=== PATIENT | female | born 1990 | race African-American/Black ===

== ENCOUNTER → 2017-07-04 | Day surgery (SDC) | payer BC, OTHER ==
[2017-07-04 12:46] VITALS: BMI 23.8
[2017-07-04 12:48] LABS: Bilirubin Negative (Negative); Blood, Urine Trace (Negative); Glucose, Urine (Dipstick) 100 mg/dL (Negative); Ketone, Urine Negative (Negative); Nitrite Negative (Negative); Protein, Urine (Dipstick) Negative (Neg-Trace); Urobilinogen 0.2 mg/dL (0.2-1.0)
[2017-07-04 12:50] LABS: Bacteria/HPF 3+ HPF (None Seen); Hyaline Casts/LPF 0-3 HYALINE CAST LPF (0-3 Hyaline); RBC/HPF 0-3 HPF (0-3); Squamous Epithelial 0-3 HPF (0-3)
--- NOTE | 2017-07-05 02:15 | PRG ---
DATE OF SERVICE: 07/05/2017 PRIMARY FINANCIAL SERVICES AUDITOR: Clinic. CHIEF COMPLAINT: Vaginal spotting. HISTORY OF PRESENT ILLNESS: The patient is a 27-year-old G1, P0 female with an intrauterine pregnan cy at 30 weeks and 3 days who woke up this morning noticing pink discharge on the toilet when she we nt to the bathroom. The patient has not had anything since then, but was worried because she is fee ling some cramping and that also has resolved. The patient denies any recent intercourse, any recen t infections, illness, fever. She denies any change in her discharge, any urinary urgency or freque ncy. The patient denies any complications with this thus far. She does admit to being by nature very worried with the health of this . PAST MEDICAL HISTORY: Negative. PAST SURGICAL HISTORY: Negative. OBSTETRIC HISTORY: This is her first . ALLERGIES: No known drug allergies. MEDICATIONS: vitamins. OBSTETRIC LABORATORY DATA: Unavailable. SOCIAL HISTORY: Denies drug, alcohol or tobacco use. REVIEW OF SYSTEMS: Patient denies any recent illness, fever, fall, headache, chest pain, shortness of breath, any nausea, vomiting, diarrhea, constipation, any new rashes, lumps or bumps, any hip pro blems or knee problems, any leakage of fluid. She has had some isolated spotting as described and d enies any urinary urgency or frequency. PHYSICAL EXAMINATION: VITAL SIGNS: Blood pressure 109/75, heart rate 96, respiratory rate 20, satting 100% on room air, t emperature 98.8. GENERAL: She appears to be in no acute distress. She is alert and oriented, and cooperative and pl easant to interact with. HEENT: Head is normocephalic, atraumatic. LUNGS: Clear to auscultation bilaterally. HEART: Regular rate and rhythm. ABDOMEN: Gravid and soft and nontender. EXTREMITIES: Nontender, nonedematous. A CABIN CLEANING SUPERVISOR-3 and urinalysis were collected. CERVIX: Cervical exam per nursing staff is closed, thick and high. heart tracing performed for threatened labor. Baseline is noted to be in the 140s with modera te long-term variability, positive accelerations, no decelerations. On the tocometer, no contractio ns are visible, but perhaps some minimal irritability. CABIN CLEANING SUPERVISOR-3 was collected and is significant for ba cterial vaginosis and UA was also collected and noted to be a clean-catch with no squamous cells, bu t positive for bacteria, leukocyte esterase and nitrites. ASSESSMENT AND PLAN: The patient is a 27-year-old female followed in the Clinic with an in trauterine at 30 weeks and 3 days who has a urinary tract infection and bacterial vaginosi s. Patient has been prescribed MetroGel to place vaginally at night for the next 7 days and a Macro bid to be taken twice a day for the next week. The patient has been given labor precautions and is scheduled to follow up with the Clinic in the near future.
== END ==
LOC: L&D/OP 11:14
PROVIDERS: ATTEND Obstetrics & Gynecology
DX: O26.853 Spotting complicating pregnancy, third trimester (principal); O23.43 Unspecified infection of urinary tract in pregnancy, third trimester; O23.593 Infection of other part of genital tract in pregnancy, third trimester; N76.0 Acute vaginitis; B96.89 Other specified bacterial agents as the cause of diseases classified elsewhere; Z3A.30 30 weeks gestation of pregnancy; Z79.2 Long term (current) use of antibiotics; Z79.899 Other long term (current) drug therapy; Z87.891 Personal history of nicotine dependence
CPT/HCPCS: 81003; 81015; 87480; 87510; 87660

== ENCOUNTER 2017-08-15 18:04 | Inpatient (IN) | payer OTHER ==
[2017-08-15 18:56] VITALS: BMI 26.3
[2017-08-15] MEDS ORDERED: Labetalol HCl 100 MG/20 ML VIAL SLOW IVP PRN ×2 (19:15→19:53)
--- NOTE | 2017-08-15 19:33 | PDOC.LDHP ---
Labor and Delivery H&P Chief complaint: other (elevated blood pressure at clinic) HPI: 27 yo @ 36.1 by 1st tri US presents for elevated BP at [facility] noted to be 140s /90s on three separate occasions. Concern for preeclampsia. Pt denies headache, vision changes, ruq and epigastric pain. Denies CP, sob. Current gestational age (weeks): 36 Due date: 09/12/17 Dating criteria: first trimester ultrasound Grav: 1 Para: 0 Current complications: gestational hypertension Abnormal US findings: Yes (borderline low inez, repeat pending) Current medications: pre-aidan vitamins Previous surgical history: none Social history: drug use (marijuana, stopped with ) - Physical Exam Abnormal vital signs: elevated bp, 2 bp >160 sys, > 15 minutes apart. Latest > 180 sys General: NAD Heart: RRR Lungs: nonlabored breathing Abdomen: NTTP Extremeties: trace edema FHT: category 1, variability present [place] contractions every: 7, sporadic - Vaginal Exam cm dilated: 1 (posterior) Effacement: 25% Station: -3 - OB Labs Blood type: O RH: positive Antibody Screen: negative HIV: negative RPR: negative HEPSAg: negative 1 hour GCT: negative GBS: unknown (done today, results pending) Urine drug screen: not done Rubella: immune - Assessment L&D Assessment: medically indicated induction -gestational htn, r/o preeclampsia, severe range pressures - Plan Plan: admit to L&D, cervical ripening, GBS antibiotic prophylaxis, magnesium for seizure prophylaxis -: cbc, cmp, UA, urine protein/creatinine ratio, NST, BPP, uric acid labetolol prn q4hr for BP >160/110 x2 severe range pressures and hyperreflexia 3+/5 will admit to l&d and cytotec for induction mag for seizure prophylaxias, mag level in AM GBS unknown and <37 weeks, prophylaxis medically indicated induction @ < 37 weeks, celestone 12mg q12hr <Luis Fernando Porter - Last Filed: 08/15/17 19:53> <Stuart Franklin - Last Filed: 08/16/17 07:42> Allergies/Adverse Reactions: Allergies Allergy/AdvReac Type Severity Reaction Status Date / Time No Known Allergies Allergy Verified 07/04/17 12:37 Attending Addendum - Attending Addendum I personally evaluated the patient and discussed the management with Dr. Porter I agree with the History, Examination, Assessment and Plan documented above with any addition or exceptions noted below. <Stuart Franklin - Last Filed: 08/16/17 07:42>
[2017-08-15 19:43] LABS: Bilirubin Negative (Negative); Blood, Urine Negative (Negative); Glucose, Urine (Dipstick) Negative (Negative); Ketone, Urine Negative (Negative); Nitrite Negative (Negative); Protein, Urine (Dipstick) Negative (Neg-Trace)
[2017-08-15 19:51] LABS: #Basophils 0.1 thou/uL (0.0-0.2); #Neutrophils 6.1 thou/uL (1.40-6.50); %Basophils 0.7 % (0.0-1.0); %Eosinophils 0.4 % (0.0-10.0); %Lymphocytes 21.5 % (21.0-51.0); %Monocytes 10.4 % (0.0-10.0); Hematocrit 38.1 % (36.0-47.0); Mean Platelet Volume 10.5 fL (7.4-10.4); White Blood Cell (WBC) Count 9.1 thou/uL (4.8-10.8)
[2017-08-15] MEDS ORDERED: Promethazine HCl 25 MG/ML VIAL IM PRN (19:53)
[2017-08-15] MEDS ORDERED: Docusate 100 MG CAP PO PRN (19:53)
[2017-08-15] MEDS ORDERED: Calcium Gluc 4.6 MEQ/10 ML (100 MG/ML) SLOW IVP PRN (19:53)
[2017-08-15] MEDS ORDERED: Ondansetron HCl/PF 4 MG/2 ML Vial IVP PRN (19:53)
[2017-08-15] MEDS ORDERED: Acetaminophen 500 MG TAB PO PRN (19:53)
[2017-08-15 20:00] LABS: Bacteria/HPF 1+ HPF (None Seen); Hyaline Casts/LPF NONE SEEN LPF (0-3 Hyaline); RBC/HPF 0-3 HPF (0-3)
[2017-08-15] MEDS ORDERED: Magnesium Sulfate 20 GM/WATER 500 ML BAG IVPB SCH (20:00)
[2017-08-15 20:13] LABS: ALT (SGPT) 8 U/L (8-55); AST (SGOT) 14 U/L (5-34); Alkaline Phosphatase 163 U/L (40-150); Anion Gap 11 mmol/L (10-20); BUN (Urea Nitrogen) 9 mg/dL (7.0-18.7); Bilirubin, Total 0.3 mg/dL (0.2-1.2); Calc. Creatinine Clearance 135 mL/min (70-130); Calcium 9.1 mg/dL (7.8-10.44); Carbon Dioxide 23 mmol/L (22-29); Chloride 107 mmol/L (98-107); Estimated GFR-MDRD Greater than 90; Protein, Total 7.3 g/dL (6.0-8.3); Uric Acid 6.6 mg/dL (2.6-6.0)
[2017-08-15] MEDS: Lactated Ringer's 1,000 ML IV SCH (21:25)
[2017-08-15] MEDS: Betamet Acet/Betamet Na Ph 30 MG/5 ML VIAL IM SCH (21:35)
[2017-08-15] MEDS: Misoprostol 100 MCG TAB VAG SCH (22:00)
[2017-08-15] MEDS ORDERED: Zolpidem Tartrate 5 MG TAB PO PRN (22:59)
--- NOTE | 2017-08-15 23:32 | ULT ---
ULTRASOUND BIOPHYSICAL PROFILE: History: Gestational hypertension. Preclampsia. Comparison: None. FINDINGS: Biophysical profile score is 8/8. heart rate documented at 144 beats/minute. Amniotic fluid ind ex is 11.9 cm. The fetus is in vertex position and placenta is posterior. IMPRESSION: Biophysical profile score 8/8. POS: [facility]
--- NOTE | 2017-08-16 00:52 | PDOC.LDPN ---
Labor & Delivery Progress Note - Subjective Subjective: comfortable, no concerns - Objective Abnormal vital signs: elevated BP, one >160 sys General: NAD Dilation: 1.5 Effacement: 100% Station: -3 FHT: category 1, variability present [place] contractions every: absent Resuscitative measures: maternal position change - Assessment (1) Gestational hypertension affecting first Code(s): O13.9 - GESTATIONAL HTN W/O SIGNIFICANT PROTEINURIA, UNSP TRIMESTER Current Visit: Yes Status: Acute Plan: continue plan of care -: continue mag uop has been 400-450 over last few hours denies headache abd pain scotoma reflexes 2+-3/5 labetolol prn for BP >160/110 cytotec for iol continue plan of care
[2017-08-16] MEDS: Misoprostol 100 MCG TAB VAG SCH ×4 (01:10→13:14)
[2017-08-16] MEDS: Penicillin G Potassium 5 MILL.UNITS in Sodium Chloride 0.9% 100 ML IVPB SCH ×2 (04:26→23:11)
--- NOTE | 2017-08-16 06:13 | PDOC.LDPN ---
Labor & Delivery Progress Note - Subjective Subjective: comfortable - Objective Abnormal vital signs: Mostly controlled BP, with periodic elevation General: NAD, resting Uterine fundus: non tender SVE: 1/0/-2 Dilation: 1 Effacement: 0% Station: -2 FHT: category 2 (minimal variability, no acceleration, no deceleration), acceleration absent, absent or minimal variables [place] contractions every: 3-5 Resuscitative measures: maternal oxygen, maternal IV fluids - Assessment (1) Gestational hypertension affecting first Code(s): O13.9 - GESTATIONAL HTN W/O SIGNIFICANT PROTEINURIA, UNSP TRIMESTER Current Visit: Yes Status: Acute Comment: Pt currently on Mg. BP is largely controlled Denies headache, changes in vision, RUQ pain, peripheral numbness/tingling Patellar DTR 2/4 bl Mg check @ 0945 Cat 2 strip possibly due to ambien, continue to monitor. Pt has made little cervical change in 8 hours of cytotec, continue to monitor vitals and cervical change Plan: continue plan of care
[2017-08-16] MEDS: Magnesium Sulfate 20 gm/500 ml 20 GM/500 ML BAG IVPB SCH ×2 (06:30→16:21)
[2017-08-16] MEDS: Pen G 2.5 MILL.UNITS/50 ML BAG IVPB SCH ×2 (08:15→17:56)
[2017-08-16] MEDS: Betamet Acet/Betamet Na Ph 30 MG/5 ML VIAL IM SCH (08:55)
--- NOTE | 2017-08-16 09:17 | PDOC.LDPN ---
Labor & Delivery Progress Note - Subjective Subjective: comfortable, no concerns - Objective Abnormal vital signs: Elevated bp to 140s/90s Uterine fundus: non tender SVE: 1/0/-3 FHT: category 1, variability present, absent or minimal variables [place] contractions every: 1-2 - Assessment (1) Gestational hypertension affecting first Code(s): O13.9 - GESTATIONAL HTN W/O SIGNIFICANT PROTEINURIA, UNSP TRIMESTER Current Visit: Yes Status: Acute Comment: Pt currently on Mg. BP is largely controlled Denies headache, changes in vision, RUQ pain, peripheral numbness/tingling Patellar DTR 2/4 bl Mg check @ 0945 Strip has improved to catagory 1. Very little cervical change. Cannot increase cytotec dose dt frequency of contractions. Cannot currently place balloon dt positioning and dilation of cervical os
[2017-08-16] MEDS: Lactated Ringer's 1,000 ML IV SCH ×3 (09:19→22:45)
--- NOTE | 2017-08-16 10:53 | PDOC.LDPN ---
Labor & Delivery Progress Note - Subjective Subjective: comfortable - Objective Abnormal vital signs: Periodic elevated BP. Most pressures are within normal range General: NAD, resting Uterine fundus: non tender SVE: 11/10/-3 FHT: category 1, variability present, absent or minimal variables - Assessment (1) Gestational hypertension affecting first Code(s): O13.9 - GESTATIONAL HTN W/O SIGNIFICANT PROTEINURIA, UNSP TRIMESTER Current Visit: Yes Status: Acute Comment: Pt currently on Mg. BP is largely controlled Denies headache, changes in vision, RUQ pain, peripheral numbness/tingling Patellar DTR 2/4 bl Mg check @ 1400 Continued cat 1 strip Very little cervical change. Cannot increase cytotec dose dt frequency of contractions. Ballon placed at 1100
[2017-08-16] MEDS: Dextrose 5%-Lactated Ringers 1,000 ML IV SCH ×2 (13:14→17:56)
--- NOTE | 2017-08-16 15:11 | PDOC.LDPN ---
Labor & Delivery Progress Note - Subjective Subjective: comfortable - Objective Abnormal vital signs: average BP 130/90, about 50% are elevated but not severe range General: NAD Uterine fundus: non tender FHT: variability present (intermittently minimal but consistent normal and small accelerations) [place] contractions every: 4 minutes Procedures: Cooks balloon in place - Assessment (1) Gestational hypertension affecting first Code(s): O13.9 - GESTATIONAL HTN W/O SIGNIFICANT PROTEINURIA, UNSP TRIMESTER Current Visit: Yes Status: Acute Comment: Pt currently on Mg. BP is consistently eleveated but only severe range pressure was during placement of balloon, which patient was very uncomfortable with. Denies headache, changes in vision, RUQ pain, peripheral numbness/tingling Patellar DTR 2/4 bl Ballon is still in place. Will leave until falls out or 12 hours have passed. (2) Encounter for induction of labor Code(s): Z34.90 - ENCNTR FOR SUPRVSN OF NORMAL , UNSP, UNSP TRIMESTER Current Visit: Yes Status: Acute (3) delivery (maternal condition) Current Visit: Yes Status: Acute Comment: Induction for condidtion above
[2017-08-16 19:33] LABS: Amphetamine Not Detected (NotDetected); Methadone Not Detected (NotDetected); Methamphetamine Not Detected (NotDetected)
--- NOTE | 2017-08-16 20:13 | PDOC.LDPN ---
Labor & Delivery Progress Note - Subjective Subjective: comfortable, no concerns - Objective Abnormal vital signs: elevated BP ranging 130s, highest 150 General: NAD, resting Uterine fundus: non tender Dilation: Cook's balloon in place FHT: category 1, variability present [place] contractions every: 5 min Resuscitative measures: maternal position change - Assessment (1) Gestational hypertension affecting first Code(s): O13.9 - GESTATIONAL HTN W/O SIGNIFICANT PROTEINURIA, UNSP TRIMESTER Current Visit: Yes Status: Acute Comment: Pt currently on Mg. BP is consistently elevatged, highesy was 150s systolic Denies headache, changes in vision, RUQ pain, peripheral numbness/tingling Patellar DTR 2/4 bl, denies scotoma Ballon is still in place. Will leave until falls out or 12 hours have passed. Pitocin after balloon. Recheck in 3 hours and remove balloon at that time. Plan: continue plan of care
[2017-08-16] MEDS ORDERED: Penicillin G Potassium 5 MILL.UNITS VIAL ONE (22:43)
[2017-08-16] MEDS ORDERED: LR 500 ML/Oxytocin 10 units 500 ML IV SCH (23:00)
[2017-08-17] MEDS: Dextrose 5%-Lactated Ringers 1,000 ML IV SCH ×3 (02:54→15:03)
[2017-08-17] MEDS: Misoprostol 100 MCG TAB VAG SCH ×5 (02:54→15:02)
[2017-08-17] MEDS: Pen G 2.5 MILL.UNITS/50 ML BAG IVPB SCH ×3 (02:55→07:03)
[2017-08-17] MEDS: Magnesium Sulfate 20 gm/500 ml 20 GM/500 ML BAG IVPB SCH (02:55)
--- NOTE | 2017-08-17 07:02 | PDOC.LDPN ---
Labor & Delivery Progress Note - Subjective Subjective: comfortable, no concerns - Objective Abnormal vital signs: SBP typically in 130s with few into 150-160s General: NAD Uterine fundus: non tender SVE: 1.5/50/-3 FHT: category 1, variability present, absent or minimal variables [place] contractions every: 4-5 Resuscitative measures: maternal IV fluids - Assessment (1) Gestational hypertension affecting first Code(s): O13.9 - GESTATIONAL HTN W/O SIGNIFICANT PROTEINURIA, UNSP TRIMESTER Current Visit: Yes Status: Acute Comment: Pt currently on Mg. SBP is generally in the 130s with periodic rises into 160s systolic. DBP is generally 90s-100s Denies headache, changes in vision, RUQ pain, peripheral numbness/tingling Patellar DTR 2/4 bl, denies scotoma Pt is unchanged from last SVE. Pit has been moved up to 6. Will recheck in 4 hours.
--- NOTE | 2017-08-17 08:49 | PDOC.LDPN ---
Labor & Delivery Progress Note - Objective Vital signs reviewed and normal: yes (BP 150/90 on Mg) General: NAD Uterine fundus: non tender SVE: by nurse Dilation: 2 FHT: category 2 (decreased variabilty possible Mg effect, accels noted earlier this morning) - Assessment (1) Severe preeclampsia Code(s): O14.10 - SEVERE PRE-ECLAMPSIA, UNSPECIFIED TRIMESTER Current Visit: Yes Status: Acute Plan: continue plan of care, pitocin for augmentation, other (Patient has received cytotec, cervical ballon, now low dose pit. Pit will be 12 hours at 11 am today. Cervix still 2cm, will recheck at 11 and if no significant progress, turn off induction and let patient rest for 12-24hrs. Urine output is ok. BP currently non-severe, will recheck labs this morning. OK for oral intake. Plan was discussed with patient, family and nurses. Dr. Churchill (resident reception manager) also briefed and agrees with our plan.)
[2017-08-17 09:13] LABS: #Lymphocytes 1.2 thou/uL (1.20-3.40); #Monocytes 1.1 thou/uL (0.11-0.59); #Neutrophils 12.8 thou/uL (1.40-6.50); %Basophils 0.1 % (0.0-1.0); %Eosinophils 0.1 % (0.0-10.0); %Lymphocytes 7.9 % (21.0-51.0); %Monocytes 7.5 % (0.0-10.0); Hematocrit 38.7 % (36.0-47.0); Mean Platelet Volume 9.9 fL (7.4-10.4); Red Blood Cell (RBC) Count 4.61 mill/uL (4.20-5.40); White Blood Cell (WBC) Count 15.1 thou/uL (4.8-10.8)
[2017-08-17 09:41] LABS: ALT (SGPT) 7 U/L (8-55); AST (SGOT) 10 U/L (5-34); Alkaline Phosphatase 155 U/L (40-150); Anion Gap 13 mmol/L (10-20); BUN (Urea Nitrogen) 6 mg/dL (7.0-18.7); Bilirubin, Total 0.2 mg/dL (0.2-1.2); Calc. Creatinine Clearance 130 mL/min (70-130); Carbon Dioxide 22 mmol/L (22-29); Chloride 105 mmol/L (98-107); Estimated GFR-MDRD Greater than 90; Globulin 3.5 g/dL (2.4-3.5); Protein, Total 6.5 g/dL (6.0-8.3)
--- NOTE | 2017-08-17 11:20 | PDOC.EVN ---
Event Note - Event Note Event Note: 1119: L&D check Cervix same. FHTs still cat 2 but suspect mag effect and celestone. We will stop pit trial now and reassess off mag. BP last was 160 but will recheck. Labs ok. S/P trial of multiple agent induction for 24 hours. Stop Mag, stop pit and reeval for another labor attempt in 12-[address] Fleming with me now, case reviewed. Keep in L&D. OK with intermittent NST Q 4 hours.
[2017-08-17] MEDS ORDERED: NIFEdipine 10 MG CAP PO PRN (11:30)
--- NOTE | 2017-08-17 14:23 | PDOC.LDPN ---
Labor & Delivery Progress Note -: Patient sleeping comfortably. BP and other vitals all WNL over the last couple of hours. When desired, may get up to shower with fall precautions and nursing assistance. Will continue to monitor BP until this evening and discuss further plan for delivery with Dr. Bolden at that time. Continue current management.
[2017-08-17] MEDS: Lactated Ringer's 1,000 ML IV SCH ×2 (15:05→15:06)
--- NOTE | 2017-08-17 19:42 | PDOC.LDPN ---
Labor & Delivery Progress Note - Subjective Subjective: comfortable - Objective Vital signs reviewed and normal: yes General: NAD, resting Uterine fundus: non tender FHT: category 1 [place] contractions every: not ruth ann Other exam findings: accelerations present, moderate variability; HR 130s - Assessment (1) Encounter for induction of labor Code(s): Z34.90 - ENCNTR FOR SUPRVSN OF NORMAL , UNSP, UNSP TRIMESTER Current Visit: Yes Status: Acute (2) Severe preeclampsia Code(s): O14.10 - SEVERE PRE-ECLAMPSIA, UNSPECIFIED TRIMESTER Current Visit: Yes Status: Acute (3) Third trimester Code(s): Z34.93 - ENCNTR FOR SUPRVSN OF NORMAL PREG, UNSP, THIRD TRIMESTER Current Visit: Yes Status: Acute Plan: continue plan of care, other -: 27 yo @ 36.2 wks gestation, with severe preeclampsia with recent sever range pressures, failure of induction of labor overnight, with plan for repeat induction attempt in the morning at 0600 with cervadil. Induction of labor, @36.3 wks gestation 2/2 severe preeclampsia -Induction tomorrow 08/18 @ 0600 -Cervadil for 12 hours -pitocin afterwards -will monitor pt's blood pressures q4hrs -Will restart PCN and Magnesium in the morning with induction -pt is okay to walk and have a normal diet <Bernie Morales - Last Filed: 08/17/17 19:39> - Assessment (1) Severe preeclampsia Code(s): O14.10 - SEVERE PRE-ECLAMPSIA, UNSPECIFIED TRIMESTER Current Visit: Yes Status: Acute Plan: other (Faculty note: I have visited with and discussed plan of care with the patient. Resident team and I at bedside to review DX and plan of care. No new questions given. All agree with plan.) -: Faculty: Patient seen and care reviewed with her and her family at bedside. Resident team and I reviewed her DX and plan of care with her and the family. No new questions by them. Retry with cervidil in AM. <Sarath Bolden - Last Filed: 08/17/17 19:56>
[2017-08-18] MEDS ORDERED: Lidocaine 1% (PF) 30 ML VIAL SC PRN ×2 (05:46→05:59)
[2017-08-18] MEDS ORDERED: LR / Pitocin 40 units/1000 ml 1,000 ML IV PRN ×2 (05:46→05:59)
[2017-08-18] MEDS ORDERED: Calcium Gluc 4.6 MEQ/10 ML (100 MG/ML) SLOW IVP PRN ×2 (05:46→05:59)
[2017-08-18] MEDS ORDERED: Penicillin G Potassium 5 MILL.UNITS in Sodium Chloride 0.9% 100 ML IVPB SCH (06:00)
[2017-08-18] MEDS ORDERED: Dinoprostone 10 MG Suppository VAG SCH (06:00)
[2017-08-18] MEDS: Lactated Ringer's 1,000 ML IV SCH ×2 (06:04→23:35)
--- NOTE | 2017-08-18 06:21 | PDOC.LDPN ---
Labor & Delivery Progress Note - Subjective Subjective: comfortable, other (few contractions) - Objective Vital signs reviewed and normal: yes General: NAD, resting, breathing through contractions Uterine fundus: non tender Dilation: 2 Effacement: 50% Station: -3 FHT: category 1 - Assessment (1) Encounter for induction of labor Code(s): Z34.90 - ENCNTR FOR SUPRVSN OF NORMAL , UNSP, UNSP TRIMESTER Current Visit: Yes Status: Acute (2) Severe preeclampsia Code(s): O14.10 - SEVERE PRE-ECLAMPSIA, UNSPECIFIED TRIMESTER Current Visit: Yes Status: Acute (3) Third trimester Code(s): Z34.93 - ENCNTR FOR SUPRVSN OF NORMAL PREG, UNSP, THIRD TRIMESTER Current Visit: Yes Status: Acute Plan: continue plan of care -: 27 yo at 36.3w with preE with severe features here for induction of labor: Cervidil placed. Mg started. Penicillin G given. Continue to monitor FHT's and toco. Pull cervidil at 1815 or sooner depending on labor progression. <Bernie Morales - Last Filed: 08/18/17 06:20> - Assessment (1) Severe preeclampsia Code(s): O14.10 - SEVERE PRE-ECLAMPSIA, UNSPECIFIED TRIMESTER Current Visit: Yes Status: Acute Plan: other (Faculty: Plan again reviewed with the resident team. Cervidil in now. BPs reviewed. ) <Sarath Bolden - Last Filed: 08/18/17 06:27>
[2017-08-18] MEDS ORDERED: Penicillin G Potassium 5 MILL.UNITS VIAL ONE (06:23)
[2017-08-18] MEDS: Magnesium Sulfate 20 gm/500 ml 20 GM/500 ML BAG IVPB SCH ×2 (06:27→14:25)
[2017-08-18] MEDS: Dextrose 5%-Lactated Ringers 1,000 ML IV SCH ×2 (07:53→15:07)
[2017-08-18] MEDS: Pen G 2.5 MILL.UNITS/50 ML BAG IVPB SCH (08:01)
[2017-08-18] MEDS: Misoprostol 100 MCG TAB VAG SCH (08:02)
[2017-08-18] MEDS ORDERED: Prenatal Vitamin 1 TAB PO SCH (09:00)
[2017-08-18] MEDS ORDERED: [UNRECOGNIZED DRUG - OTHER] PO SCH (09:00)
[2017-08-18] MEDS ORDERED: IRON PO SCH (09:00)
[2017-08-18] MEDS ORDERED: PRENATAL VIT PO SCH (09:00)
[2017-08-18] MEDS: Labetalol HCl 100 MG/20 ML VIAL SLOW IVP PRN ×3 (09:35→18:42)
[2017-08-18] MEDS: Penicillin G 2.5 MILL.units 2.5 MILL.UNITS in Premix Bag 1 BAG IVPB SCH ×4 (11:10→23:35)
[2017-08-18] MEDS ORDERED: LR 500 ML/Oxytocin 10 units 500 ML ONE (18:33)
[2017-08-18] MEDS ORDERED: Fentanyl 4 mcg/Marc 0.1% Cadd 100 ML ONE (20:56)
[2017-08-18] MEDS ORDERED: Promethazine HCl 25 MG/ML VIAL IM PRN (21:56)
[2017-08-18] MEDS ORDERED: Naloxone HCl 0.4 mg/ml Vial IVP PRN ×2 (21:56)
[2017-08-18] MEDS ORDERED: ePHEDrine/0.9% NaCl/PF SYRINGE 50 mg/10 ml SLOW IVP PRN (21:56)
[2017-08-18] MEDS ORDERED: diphenhydrAMINE 50 MG/ML VIAL IVP PRN (21:56)
[2017-08-18] MEDS ORDERED: Eucerin (Mineral Oil/Petrolatum,White) 30 gm Jar TOP PRN (21:56)
[2017-08-18] MEDS ORDERED: Lactated Ringer's 500 ML IV PRN (21:56)
[2017-08-18] MEDS ORDERED: Ondansetron HCl/PF 4 MG/2 ML Vial IVP PRN (21:56)
[2017-08-18] MEDS ORDERED: Fentanyl 4mcg/Marcaine 0.1% Cassette 100 ML EPIDURAL SCH (22:00)
[2017-08-18] MEDS ORDERED: Communication Order-Pharmacy FS SCH (22:00)
--- NOTE | 2017-08-18 22:01 | PDOC.LDPN ---
Labor & Delivery Progress Note - Subjective Subjective: comfortable, painful contractions, vaginal pressure - Objective Vital signs reviewed and normal: yes General: NAD, resting, breathing through contractions Uterine fundus: non tender Dilation: 3 Effacement: 50% Station: -1 FHT: category 1 [place] contractions every: 10 - Assessment (1) Encounter for induction of labor Code(s): Z34.90 - ENCNTR FOR SUPRVSN OF NORMAL , UNSP, UNSP TRIMESTER Current Visit: Yes Status: Acute (2) Severe preeclampsia Code(s): O14.10 - SEVERE PRE-ECLAMPSIA, UNSPECIFIED TRIMESTER Current Visit: Yes Status: Acute (3) Third trimester Code(s): Z34.93 - ENCNTR FOR SUPRVSN OF NORMAL PREG, UNSP, THIRD TRIMESTER Current Visit: Yes Status: Acute Plan: continue plan of care, labor augmentation, pitocin for augmentation -: 27 yo @ 36.3 wks with severe preeclampsia and failed induction, now on second trial of induction s/p 12 hours with cervidil. Plan: Start pitocin AROM and IUPC at 2200. Continue to monitor. epidural to be placed.
--- NOTE | 2017-08-18 22:35 | PDOC.LDPN ---
Labor & Delivery Progress Note - Subjective Subjective: vaginal pressure, loss of fluid - Objective Vital signs reviewed and normal: yes Dilation: 4 Effacement: 50% Station: -1 FHT: category 1 [place] contractions every: 1 minute AROM: clear fluid (2041 clear spontaneous rupture of membranes) IUPC placed: yes - Assessment (1) Encounter for induction of labor Code(s): Z34.90 - ENCNTR FOR SUPRVSN OF NORMAL , UNSP, UNSP TRIMESTER Current Visit: Yes Status: Acute (2) Severe preeclampsia Code(s): O14.10 - SEVERE PRE-ECLAMPSIA, UNSPECIFIED TRIMESTER Current Visit: Yes Status: Acute (3) Third trimester Code(s): Z34.93 - ENCNTR FOR SUPRVSN OF NORMAL PREG, UNSP, THIRD TRIMESTER Current Visit: Yes Status: Acute Plan: continue plan of care, labor augmentation, pitocin for augmentation, other (IUPC placed @ 2199) -: 27 yo @ 36.3 here for second trial of induction of labor secondary to severe preeclampsia with normal range pressures, cat 1 strip, with SROM, clear fluid @ 2041, now with IUPC placed. Plan: IUPC placed Continue pitocin labor checks q4hr continue magnesium continue penicillin g
[2017-08-19] MEDS: Magnesium Sulfate 20 gm/500 ml 20 GM/500 ML BAG IVPB SCH ×3 (00:30→21:35)
[2017-08-19] MEDS: Dextrose 5%-Lactated Ringers 1,000 ML IV SCH (00:30)
[2017-08-19] MEDS: Labetalol HCl 100 MG/20 ML VIAL SLOW IVP PRN ×3 (03:52→06:16)
--- NOTE | 2017-08-19 03:55 | PDOC.LDPN ---
Labor & Delivery Progress Note - Subjective Subjective: painful contractions, vaginal pressure, other - Objective Vital signs reviewed and normal: yes (one elevated bp to 160s systolic) General: breathing through contractions Dilation: 5 Effacement: 100% Station: -1 FHT: category 1 [place] contractions every: 5-8 minutes AROM: clear fluid IUPC placed: yes - Assessment (1) Encounter for induction of labor Code(s): Z34.90 - ENCNTR FOR SUPRVSN OF NORMAL , UNSP, UNSP TRIMESTER Current Visit: Yes Status: Acute (2) Severe preeclampsia Code(s): O14.10 - SEVERE PRE-ECLAMPSIA, UNSPECIFIED TRIMESTER Current Visit: Yes Status: Acute (3) Third trimester Code(s): Z34.93 - ENCNTR FOR SUPRVSN OF NORMAL PREG, UNSP, THIRD TRIMESTER Current Visit: Yes Status: Acute Plan: continue plan of care (continue pitocin and labor checks q3-4hrs)
[2017-08-19] MEDS: Penicillin G 2.5 MILL.units 2.5 MILL.UNITS in Premix Bag 1 BAG IVPB SCH ×2 (04:00→23:06)
[2017-08-19] MEDS ORDERED: Adacel (T-DAP) 0.5 ML VIAL IM ONE (05:57)
[2017-08-19] MEDS ORDERED: Preparation H Ointment 28 GM TUBE PR PRN (05:57)
[2017-08-19] MEDS ORDERED: Lanolin Ointment 7 GM TUBE TOP PRN (05:57)
[2017-08-19] MEDS ORDERED: Milk Of Magnesia 30 ML UDCUP PO PRN (05:57)
[2017-08-19] MEDS ORDERED: Calcium Gluconate 4.6 MEQ in Sodium Chloride 0.9% 100 ML IVPB PRN (05:57)
[2017-08-19] MEDS ORDERED: Bisacodyl 10 MG SUPP PR PRN (05:57)
[2017-08-19] MEDS ORDERED: LR / Pitocin 40 units/1000 ml 1,000 ML IV SCH (06:00)
[2017-08-19 06:24] LABS: #Lymphocytes 1.7 thou/uL (1.20-3.40); #Monocytes 1.4 thou/uL (0.11-0.59); #Neutrophils 10.1 thou/uL (1.40-6.50); %Basophils 0.4 % (0.0-1.0); %Eosinophils 0.1 % (0.0-10.0); %Lymphocytes 13.1 % (21.0-51.0); %Monocytes 10.4 % (0.0-10.0); Hematocrit 41.6 % (36.0-47.0); Mean Platelet Volume 9.8 fL (7.4-10.4); Red Blood Cell (RBC) Count 4.89 mill/uL (4.20-5.40); White Blood Cell (WBC) Count 13.2 thou/uL (4.8-10.8)
--- NOTE | 2017-08-19 07:47 | PDOC.OPDEL ---
OB Operative/Delivery Note Delivery Dr/Surgeon: Dr. Andrew Lopez and Dr. Chicas Assist: Attending: Dr. Davey Pre-Delivery Diagnosis: active labor, medically indicated induction Procedure/Post Delivery Dx: other (Normal Spontaneous Vaginal Delivery) Anesthesia: epidural - Findings A Sex: female - 1 min: 8 - 5 min: 9 - Additional Findings/Plan Placenta delivered: spontaneous Repaired Obstetrical Laceration: none Estimated blood loss: 200 Post delivery plan: recovery in LICU
[2017-08-19] MEDS: Docusate (Surfak) 240 MG CAP PO SCH ×2 (10:00→23:03)
--- NOTE | 2017-08-19 13:21 | PDOC.EVN ---
Event Note - Event Note Event Note: Pt denies cp, sob, epigastric and ruq pain. Denies headache and scotoma. UOP has been 750mls/hr over last 2 hours. BP remains 150s systolic, but asymptomatic. Reflexes 2/4. No concerns. Mag checks q4hrs. OK to dc mag @ 4048 08/20/2017.
[2017-08-19] MEDS: Ibuprofen 800 MG TAB PO SCH ×3 (16:20→23:07)
[2017-08-19] MEDS: Ferrous Sulfate 325 MG TAB PO SCH ×2 (16:21→20:11)
[2017-08-19] MEDS: Acetaminophen 325 MG TAB PO PRN ×2 (16:22→23:10)
[2017-08-19] MEDS ORDERED: Bupivacaine/Epinephrine 0.25% 30 ML VIAL ONE (21:47)
[2017-08-19] MEDS ORDERED: Lidocaine 2% PF 5 ML VIAL ONE (21:47)
--- NOTE | 2017-08-20 01:51 | PDOC.PP ---
Post Progress Note Post Day #: 1 Subjective: 27 yo delivered via on 08/19 @ 0550. Pt was induced 2/2 severe preeclampsia and is currently on magnesium for 24 hours after delivery. No complaints. No changes in vision or headaches. Urinating adequately. PO intake tolerated: yes Vital Signs (12 hours) Temp Pulse Resp BP 08/19/17 21:16 99.0 F 96 18 135/90 08/19/17 20:00 99.0 F 96 18 Weight Weight 76.204 kg - Physical Examination General: NAD Cardiovascular: no m/r/g, RRR Respiratory: clear to auscultation bilaterally, non-labored breathing Abdominal: + bowel sounds, lochia (small), appropriately TTP Neurological: no gross focal deficits (normo-reflexive) Result Diagrams: 08/19/17 06:10 08/17/17 08:57 Additional Labs: Post Labs Blood Type O POSITIVE 08/15/17 19:29 Hep Bs Antigen Non-Reactive S/CO (NonReactive) 08/15/17 19:29 (1) Encounter for induction of labor Code(s): Z34.90 - ENCNTR FOR SUPRVSN OF NORMAL , UNSP, UNSP TRIMESTER Status: Acute (2) Severe preeclampsia Code(s): O14.10 - SEVERE PRE-ECLAMPSIA, UNSPECIFIED TRIMESTER Status: Acute (3) Third trimester Code(s): Z34.93 - ENCNTR FOR SUPRVSN OF NORMAL PREG, UNSP, THIRD TRIMESTER Status: Acute - Assessment/Plan 27 yo with hx of sever preeclampsia now s/p to a female on 08/19 @ 36.4 wks gestation at 0550, no lacs, ebl 200, apgars 8,9. No signs of mg toxicity Continue routine care <Bernie Morales - Last Filed: 08/20/17 01:43> Vital Signs (12 hours) Temp Pulse Resp BP 08/19/17 21:16 99.0 F 96 18 135/90 08/19/17 20:00 99.0 F 96 18 Weight Weight 168 lb Result Diagrams: 08/19/17 06:10 08/17/17 08:57 Additional Labs: Post Labs Blood Type O POSITIVE 08/15/17 19:29 Hep Bs Antigen Non-Reactive S/CO (NonReactive) 08/15/17 19:29 <Stuart Franklin - Last Filed: 08/20/17 07:44> Attending Addendum - Attending Addendum I personally evaluated the patient. I agree with the History, Examination, Assessment and Plan documented above with any addition or exceptions noted below. <Stuart Franklin - Last Filed: 08/20/17 07:44>
--- NOTE | 2017-08-20 02:35 | PDOC.PP ---
Post Progress Note Post Day #: 1 Subjective: Sleeping comfortably. Vital Signs (12 hours) Temp Pulse Resp BP 08/19/17 21:16 99.0 F 96 18 135/90 08/19/17 20:00 99.0 F 96 18 Weight Weight 76.204 kg - Physical Examination General: NAD Cardiovascular: no m/r/g, RRR Respiratory: non-labored breathing Extremities: negative homans (B) Neurological: no gross focal deficits (2+ DTRs) Psychiatric: normal affect Result Diagrams: 08/19/17 06:10 08/17/17 08:57 Additional Labs: Post Labs Blood Type O POSITIVE 08/15/17 19:29 Hep Bs Antigen Non-Reactive S/CO (NonReactive) 08/15/17 19:29 (1) Gestational hypertension affecting first Code(s): O13.9 - GESTATIONAL HTN W/O SIGNIFICANT PROTEINURIA, UNSP TRIMESTER Status: Acute Comment: Pt currently on Mg. SBP is generally in the 130s with periodic rises into 150s systolic. DBP is generally 90s-100s. No severe range pressures Denies headache, changes in vision, RUQ pain, peripheral numbness/tingling Patellar DTR 2/4 bl, UOP 200/hour Will transfer to post off magnesium at 5 AM if she continues to do well.
[2017-08-20] MEDS: Ferrous Sulfate 325 MG TAB PO SCH ×2 (09:17→18:44)
[2017-08-20] MEDS: Docusate (Surfak) 240 MG CAP PO SCH ×2 (09:18→20:44)
[2017-08-20] MEDS: Acetaminophen 325 MG TAB PO PRN ×2 (13:10→20:44)
--- NOTE | 2017-08-20 17:22 | PDOC.PP ---
Post Progress Note Post Day #: 2 Subjective: 27 yo delivered via . PP day 2. Off mag since 5am. Asymptomatic, no ruq/epigastric pain and no headache or scotoma. PO intake tolerated: yes Flatus: yes Ambulation: yes Vital Signs (12 hours) Temp Pulse Resp BP 08/20/17 16:00 99.9 F H 93 20 08/20/17 12:00 99.9 F H 93 20 08/20/17 11:57 99.9 F H 93 20 143/102 H 08/20/17 08:43 98.7 F 83 20 08/20/17 08:29 98.7 F 83 20 139/95 H Weight Weight 76.204 kg - Physical Examination General: NAD Cardiovascular: no m/r/g, RRR Respiratory: clear to auscultation bilaterally, non-labored breathing Abdominal: + bowel sounds, lochia, no distention, appropriately TTP Fundus firm & at: umbilicus Extremities: negative homans (B) Neurological: no gross focal deficits Deviation from normal: 2/4 reflexes Result Diagrams: 08/19/17 06:10 08/17/17 08:57 Additional Labs: Post Labs Blood Type O POSITIVE 08/15/17 19:29 Hep Bs Antigen Non-Reactive S/CO (NonReactive) 08/15/17 19:29 (1) Gestational hypertension affecting first Code(s): O13.9 - GESTATIONAL HTN W/O SIGNIFICANT PROTEINURIA, UNSP TRIMESTER Status: Acute - Assessment/Plan continue to monitor pressures labetolol prn for BP >160/110 pt remains asymptomatic reflexes normal, no ruq ttp/epigastric pain, denies headache and scotoma <Luis Fernando Porter - Last Filed: 08/20/17 17:21> Weight Weight 168 lb Result Diagrams: 08/19/17 06:10 08/17/17 08:57 Additional Labs: Post Labs Blood Type O POSITIVE 08/15/17 19:29 Hep Bs Antigen Non-Reactive S/CO (NonReactive) 08/15/17 19:29 <Stuart Franklin - Last Filed: 08/23/17 10:50> Attending Addendum - Attending Addendum I personally evaluated the patient. I agree with the History, Examination, Assessment and Plan documented above with any addition or exceptions noted below. <Stuart Franklin - Last Filed: 08/23/17 10:50>
[2017-08-20] MEDS: Ibuprofen 800 MG TAB PO SCH (19:29)
[2017-08-20] MEDS ORDERED: Sodium Chloride 0.9% 10 ML ONE (20:04)
[2017-08-20] MEDS: Labetalol HCl 100 MG/20 ML VIAL SLOW IVP PRN (20:12)
[2017-08-20] MEDS ORDERED: NIFEdipine XL 30 MG TAB PO SCH (20:45)
[2017-08-20] MEDS ORDERED: Labetalol HCl 100 MG/20 ML VIAL SLOW IVP PRN (23:52)
[2017-08-21] MEDS ORDERED: Sodium Chloride 0.9% 10 ML ONE (00:05)
[2017-08-21] MEDS: Acetaminophen 325 MG TAB PO PRN ×3 (00:17→21:11)
--- NOTE | 2017-08-21 08:45 | PDOC.PP ---
Post Progress Note Post Day #: 3 Subjective: 27 yo pp day 3. Delivered via after successful IOL. Complicated by extreme range BP. Pt had a few elevated pressures last night. Was given 30mg procardia and required additional dose of IV labetolol. Pt reports mild headache. Denies ruq/epigastric pain and scotoma. Ambulating well, passing flatus, scant lochia. PO intake tolerated: yes Flatus: yes Ambulation: yes Vital Signs (12 hours) Temp Pulse Resp BP BP Pulse Ox 08/21/17 07:46 98.6 F 77 20 130/88 97 08/21/17 04:10 77 137/91 H 08/21/17 00:47 75 130/83 08/21/17 00:10 93 161/92 H 08/20/17 23:45 93 161/92 H 08/20/17 20:49 78 180/102 H Weight Weight 76.204 kg - Physical Examination General: NAD Cardiovascular: no m/r/g, RRR Respiratory: clear to auscultation bilaterally, non-labored breathing Abdominal: + bowel sounds, lochia, no distention, appropriately TTP Neurological: no gross focal deficits Result Diagrams: 08/19/17 06:10 08/17/17 08:57 Additional Labs: Post Labs Blood Type O POSITIVE 08/15/17 19:29 Hep Bs Antigen Non-Reactive S/CO (NonReactive) 08/15/17 19:29 (1) Gestational hypertension affecting first Code(s): O13.9 - GESTATIONAL HTN W/O SIGNIFICANT PROTEINURIA, UNSP TRIMESTER Status: Acute - Assessment/Plan -pt given procardia last night as well as labetolol -will hold am dose of procardia and monitor pressures throughout the day so procardia dose can be adjusted accordingly. Will schedule pm procardia dose -tylenol for headache, reassesss if no resolution of headache after tylenol <Luis Fernando Porter - Last Filed: 08/21/17 08:42> Weight Weight 168 lb Result Diagrams: 08/19/17 06:10 08/17/17 08:57 Additional Labs: Post Labs Blood Type O POSITIVE 08/15/17 19:29 Hep Bs Antigen Non-Reactive S/CO (NonReactive) 08/15/17 19:29 <Stuart Franklin - Last Filed: 08/23/17 10:51> Attending Addendum - Attending Addendum I personally evaluated the patient and discussed the management with Dr. Porter I agree with the History, Examination, Assessment and Plan documented above with any addition or exceptions noted below. <Stuart Franklin - Last Filed: 08/23/17 10:51>
[2017-08-21] MEDS ORDERED: NIFEdipine XL 30 MG TAB PO SCH ×2 (09:00→20:00)
[2017-08-21] MEDS: Ferrous Sulfate 325 MG TAB PO SCH ×2 (09:14→17:16)
[2017-08-21] MEDS: Docusate (Surfak) 240 MG CAP PO SCH ×2 (09:15→21:11)
[2017-08-21] MEDS: NIFEdipine XL 30 MG TAB PO SCH (09:16)
--- NOTE | 2017-08-22 08:30 | PDOC.EVN ---
Event Note - Event Note Event Note: Faculty note: 9830 Patient here for BP observation . Highest pressure 132/97...Just on single agent Procardia for BP support. Baby in NICU for desats at 36 weeks EGA age. S. No c/o O. Vitals reviewed A: PIH now day 4 on BP observation. On Procardia. Plan: 1. PPday 3, procardia day 2 --- ok for dsch home with B&B today due to baby in NICU. has dhaval observed for 72 hours . Check BPs today with standing DC order at 1600 to further eval BPs before formal dsch 2. BP check in 1 week. 3. Home with procardia on current dose case reviewed with Resident Charlotte and patient seen this am.
[2017-08-22] MEDS: Ferrous Sulfate 325 MG TAB PO SCH ×2 (09:16→18:20)
[2017-08-22] MEDS: NIFEdipine XL 30 MG TAB PO SCH (09:16)
[2017-08-22] MEDS: Docusate (Surfak) 240 MG CAP PO SCH (09:16)
[2017-08-22 13:07] VITALS: BP 119/93; TEMP 99
== END 2017-08-22 19:10 | disposition home or self-care (01) | DRG 775 ==
LOC: L&D/OP 18:04 → L&D 20:14 → 3SW 08-20 06:48
PROVIDERS: ADMIT Obstetrics & Gynecology; ATTEND Obstetrics & Gynecology
PROC: 3E0P7VZ Introduction of Hormone into Female Reproductive, Via Natural or Artificial Opening (ICD-10-PCS; principal; 2017-08-16)
PROC: 0U7C7ZZ Dilation of Cervix, Via Natural or Artificial Opening (ICD-10-PCS; 2017-08-16)
PROC: 10907ZC Drainage of Amniotic Fluid, Therapeutic from Products of Conception, Via Natural or Artificial Opening (ICD-10-PCS; 2017-08-18)
PROC: 3E0P3VZ Introduction of Hormone into Female Reproductive, Percutaneous Approach (ICD-10-PCS; 2017-08-18)
PROC: 10H07YZ Insertion of Other Device into Products of Conception, Via Natural or Artificial Opening (ICD-10-PCS; 2017-08-18)
PROC: 4A1H74Z Monitoring of Products of Conception, Cardiac Electrical Activity, Via Natural or Artificial Opening (ICD-10-PCS; 2017-08-18)
PROC: 10E0XZZ Delivery of Products of Conception, External Approach (ICD-10-PCS; 2017-08-19)
DX: O14.14 Severe pre-eclampsia complicating childbirth (principal); O60.14X0 Preterm labor third trimester with preterm delivery third trimester, not applicable or unspecified; O61.0 Failed medical induction of labor; Z37.0 Single live birth; O13.3 Gestational [pregnancy-induced] hypertension without significant proteinuria, third trimester; Z3A.36 36 weeks gestation of pregnancy
CPT/HCPCS: 36415; 76819; 80053; 80306; 81003; 81015; 82570; 83735; 84156; 84550; 85025; 86780; 87340; 88307; 90715; A4216; C1726; J0595; J0702; J2001; J2405; J2540; J3475; J7050; J7120

== ENCOUNTER 2017-12-25 11:17 | Emergency (ER) | payer OTHER, SELFPAY | END 2017-12-25 14:21 | disposition home or self-care (01) | LOC: ERS 11:17 | DX: R05 Cough (principal) | CPT/HCPCS: 99283 ==

== ENCOUNTER 2018-09-07 10:48 | Emergency (ER) | payer MEDICAID, SELFPAY | END 2018-09-07 11:55 | disposition home or self-care (01) | LOC: ERS 10:48 | DX: Z00.00 Encounter for general adult medical examination without abnormal findings (principal); I10 Essential (primary) hypertension | CPT/HCPCS: 99282 ==

== ENCOUNTER 2018-12-24 13:50 | Emergency (ER) | payer MEDICAID, OTHER ==
--- NOTE | 2018-12-24 16:05 | ULT ---
EXAM: US OB Complete STANDARD PROVIDED CLINICAL HISTORY: Abnormal heart rate according to patient. COMPARISON: None FINDINGS: There is evidence of a single intrauterine gestation. Cardiac Doppler demonstrates heart tones with heart rate ranging from 163 to 173 bpm. The placenta is located posteriorly. Subjectively, there is a normal amount of amniotic fluid. measurements: Biparietal diameter 2.46 cm, 14 weeks 1 day Head circumference 9.52 cm, 14 weeks 3 days Abdominal circumference 8.36 cm, 14 weeks 5 days Femur length 1.17 cm, 13 weeks 3 days Estimated gestational age by ultrasound is 14 weeks 1 day with ELIER on 06/23/2019. Gestational age by l ast menstrual period is 13 weeks 3 days. The anatomical structures are unable to be evaluated d ue to early intrauterine gestation, but no definite anomalies are visualized. The right ovary demonstrates a normal transabdominal appearance and measures 1.4 cm x 1.5 cm x 1.3 cm . Doppler evaluation with spectral analysis of the right ovary demonstrates arterial flow. The left ovary is not visualized on transabdominal imaging. No free fluid is seen in the pelvis. IMPRESSION: Single intrauterine gestation with heart tones documented. Gestational age by ultrasound is 14 weeks 1 day with ELIER on 06/23/2019.
== END 2018-12-24 16:34 | disposition home or self-care (01) ==
LOC: ERS 13:50
DX: O99.89 Other specified diseases and conditions complicating pregnancy, childbirth and the puerperium (principal); R42 Dizziness and giddiness; Z3A.14 14 weeks gestation of pregnancy
CPT/HCPCS: 76805

== ENCOUNTER 2019-02-10 13:35 | Outpatient (CLI) | payer OTHER ==
--- NOTE | 2019-02-10 15:04 | ULT ---
OB ULTRASOUND: 02/10/19 HISTORY: anatomy. FINDINGS: A single live intrauterine gestation is seen with measurements corresponding to an estimated gestati onal age of 20 weeks, 3 days and ELIER at 06/27/19. The estimated weight measures 377 grams or 13 oz. This corresponds to the 57th percentile by Hadlock criteria. measurements as follows: BPD 4.40 cm 19 weeks, 3 days HC 17.42 cm 20 weeks, 0 days AC 16.01 cm 21 weeks, 1 day FL 3.42 cm 20 weeks, 6 days The heart rate measures 152 beats per minute. Placenta is posteriorly located without evidence of placenta previa. CLAUDETTE measures 12.7 cm. A three vessel cord, cord insertion, kidneys, bladder, stomach, four chambered heart, lateral v entricles, cerebellum, spine, lips/nose, upper and lower extremities visualized. No definite an omalies are seen. IMPRESSION: Single live IUP of 20 weeks, 3 days estimated gestational age and ELIER at 06/27/19. POS: [facility]
== END 2019-02-10 13:36 | disposition home or self-care (01) ==
LOC: BICULT 13:35
PROVIDERS: ATTEND Family Medicine
DX: O09.892 Supervision of other high risk pregnancies, second trimester (principal); Z3A.20 20 weeks gestation of pregnancy
CPT/HCPCS: 76805

== ENCOUNTER 2019-04-21 08:52 | Day surgery (SDC) | payer OTHER ==
[2019-04-21 09:29] VITALS: BMI 31.6
[2019-04-21] MEDS ORDERED: hydrALAZINE 20 MG/ML VIAL SLOW IVP PRN (10:18)
--- NOTE | 2019-04-21 10:22 | PDOC.LDHP ---
Labor and Delivery H&P Chief complaint: other (Vaginal pressure at 31 weeks) HPI: Patient of Dr patel Seen in triage A at [address] Fernandez CC: vaginal pressure and poss CTX HPI: 29 yo AA with last delivery () in 2017 induced at 36 weeks for PIH , here with vag pressure. No VB, no LOF, no recent trauma. No RAMOS, no visual changes or RUQ pains. Good FM. States took BP meds after first delivery but then was taken off them (name of meds unknown). Review of Systems: Complete ROS performed and as per HPI Current gestational age (weeks): 31 (0 day) Due date: 06/23/19 Dating criteria: last menstrual period Grav: 2 Para: 1 OB History Details: HX PIH with first...no Hx CHTN but did take meds after first , not on meds now Current complications: other (elevated BPs (nonsevere noted in triage) ) Current medications: pre-aidan vitamins, other (Not on ASA) Previous surgical history: none Allergies/Adverse Reactions: Allergies Allergy/AdvReac Type Severity Reaction Status Date / Time No Known Allergies Allergy Verified 04/21/19 09:23 Social history: none - Physical Exam Abnormal vital signs: 143/103, 123/95 afebrile 80s 18 General: NAD Heart: RRR Lungs: CTAB Abdomen: gravid Extremeties: no edema FHT: category 1 (reactive for EGA) Rolette contractions every: none - Assessment 29 yo AA with prior PIH HX and IOL at 36 weeks, here for vag pressures and incidentally noted high BPs (nonsevere). ASX of PIH. - Plan Plan: observation in L&D (I have seen and evaluated the patient and I have reviewed with her BP results. As long as non severe, we can follow closely until 37 weeks. I have ordered UP/UCR ratio, CMP, CBC. Serial BPs. I have ordered a TV sono for cervical length ue to her c/o pressure vaginally. I have ordered BPP although less than 32 weeks, and no C/O decresaed FM...I ordered it for survellance for PIH. No steroids now as nonsevere and I am not sure if this is CHTN exposing itself or PIH...assume PIH.)
[2019-04-21 11:08] LABS: Hemoglobin 12.4 g/dL (12.0-16.0); Mean Corpuscular HGB CONC 34.2 g/dL (32.0-36.0); Mean Corpuscular Hemoglobin 27.6 pg (27.0-31.0); Mean Corpuscular Volume 80.9 fL (78.0-98.0); Platelet Count 184 thou/uL (130-400); RBC Distribution Width 12.3 % (11.5-14.5); Red Blood Cell (RBC) Count 4.48 mill/uL (4.20-5.40); White Blood Cell (WBC) Count 9.2 thou/uL (4.8-10.8)
[2019-04-21 11:18] LABS: Creatinine, Urine 104.47 mg/dL (47-110)
--- NOTE | 2019-04-21 11:30 | ULT ---
ULTRASOUND BIOPHYSICAL PROFILE: HISTORY: distress, -induced hypertension FINDINGS: A single live intrauterine gestation is seen. heart rate:147bpm CLAUDETTE: 7.5 cm Placenta: Posterior without placenta previa OB biophysical profile: tone: 2 breathin movements: 2 Amniotic fluid: 2 IMPRESSION: The ultrasound biophysical profile score is 8 out of 8.
[2019-04-21 11:37] LABS: ALT (SGPT) 8 U/L (8-55); AST (SGOT) 13 U/L (5-34); Albumin 3.2 g/dL (3.5-5.0); Alkaline Phosphatase 134 U/L (40-150); Anion Gap 12 mmol/L (10-20); BUN (Urea Nitrogen) 4 mg/dL (7.0-18.7); Bilirubin, Total 0.4 mg/dL (0.2-1.2); Calc. Creatinine Clearance 181 mL/min (70-130); Calcium 8.7 mg/dL (7.8-10.44); Carbon Dioxide 21 mmol/L (22-29); Chloride 106 mmol/L (98-107); Estimated GFR-MDRD Greater than 90; Globulin 3.2 g/dL (2.4-3.5); Glucose 73 mg/dL (70-105); Potassium 3.7 mmol/L (3.5-5.1); Protein, Total 6.4 g/dL (6.0-8.3); Sodium 135 mmol/L (136-145)
--- NOTE | 2019-04-21 11:38 | PDOC.EVN ---
Event Note - Event Note Event Note: CBC wnl UP/Cr normal at 0.14 CMP pending BPs labile at 140-150s/90s to max 109 Diastolic (x1) BPP 8/8 TVUS CX normal >3cm
--- NOTE | 2019-04-21 11:55 | PDOC.EVN ---
Event Note - Event Note Event Note: CMP ok Recommend recheck BP in 24-48 hours. Start low dose baby ASA once a day even though already 31 weeks
== END 2019-04-21 12:15 | disposition home or self-care (01) ==
LOC: L&D/OP 08:52
PROVIDERS: ATTEND Family Medicine
DX: O99.89 Other specified diseases and conditions complicating pregnancy, childbirth and the puerperium (principal); R10.2 Pelvic and perineal pain; O16.3 Unspecified maternal hypertension, third trimester; Z3A.31 31 weeks gestation of pregnancy; Z79.899 Other long term (current) drug therapy
CPT/HCPCS: 36415; 76819; 80053; 82570; 84156; 85027; 99285

== ENCOUNTER 2019-04-23 10:32 | Observation (INO) | payer OTHER ==
[2019-04-23 11:43] LABS: Hemoglobin 12.2 g/dL (12.0-16.0); Mean Corpuscular HGB CONC 35.3 g/dL (32.0-36.0); Mean Corpuscular Volume 79.5 fL (78.0-98.0); Mean Platelet Volume 9.9 fL (7.4-10.4); Platelet Count 172 thou/uL (130-400); RBC Distribution Width 12.1 % (11.5-14.5); Red Blood Cell (RBC) Count 4.35 mill/uL (4.20-5.40); White Blood Cell (WBC) Count 8.4 thou/uL (4.8-10.8)
[2019-04-23 11:45] VITALS: BMI 31.1
[2019-04-23] MEDS ORDERED: Acetaminophen 500 MG TAB PO PRN (12:19)
[2019-04-23] MEDS ORDERED: Docusate 100 MG CAP PO PRN (12:19)
[2019-04-23] MEDS ORDERED: Promethazine HCl 25 MG/ML VIAL IM PRN (12:19)
[2019-04-23] MEDS ORDERED: Ondansetron PF 4 MG/2 ML Vial FS PRN ×2 (12:19→12:23)
[2019-04-23 12:42] LABS: AST (SGOT) 16 U/L (5-34)
[2019-04-23 12:44] LABS: Anion Gap 13 mmol/L (10-20); Carbon Dioxide 22 mmol/L (22-29); Chloride 104 mmol/L (98-107); Sodium 136 mmol/L (136-145)
[2019-04-23 12:45] LABS: BUN (Urea Nitrogen) 5 mg/dL (7.0-18.7)
[2019-04-23 12:46] LABS: Calc. Creatinine Clearance 153 mL/min (70-130); Estimated GFR-MDRD Greater than 90
[2019-04-23 12:47] LABS: Bilirubin, Total 0.4 mg/dL (0.2-1.2); Calcium 9.1 mg/dL (7.8-10.44); Glucose 145 mg/dL (70-105)
[2019-04-23 12:48] LABS: Albumin 3.4 g/dL (3.5-5.0); Protein, Total 6.8 g/dL (6.0-8.3)
[2019-04-23 12:49] LABS: Globulin 3.4 g/dL (2.4-3.5)
[2019-04-23 12:50] LABS: ALT (SGPT) 9 U/L (8-55); Alkaline Phosphatase 142 U/L (40-150)
[2019-04-23] MEDS: Betamet Acet/Betamet Na Ph 30 MG/5 ML VIAL IM SCH (13:00)
[2019-04-23] MEDS ORDERED: Aspirin Chewable 81 MG TAB PO SCH (19:30)
[2019-04-23 21:12] VITALS: TEMP 98.3
[2019-04-24] MEDS ORDERED: Aspirin 81 mg Enteric Coated Tablet PO SCH (09:00)
[2019-04-24 12:58] LABS: Urine Total Volume 1750 mL (600-1600)
[2019-04-24] MEDS: Betamet Acet/Betamet Na Ph 30 MG/5 ML VIAL IM SCH (13:08)
[2019-04-24 13:35] LABS: Protein - 24 Hr 228 mg/24 hr (Less than 300); Protein, Urine 13 mg/dL (1-14)
== END 2019-04-24 15:10 | disposition home or self-care (01) ==
LOC: L&D/OP 10:32 → INTOOBSV 10:45 → L&D 10:45
PROVIDERS: ADMIT Family Medicine; ATTEND Family Medicine
DX: O13.3 Gestational [pregnancy-induced] hypertension without significant proteinuria, third trimester (principal); Z79.899 Other long term (current) drug therapy; Z3A.31 31 weeks gestation of pregnancy
CPT/HCPCS: 36415; 80053; 84156; 85027; 96372; G0378; J0702

== ENCOUNTER 2019-04-28 11:24 | Inpatient (IN) | payer OTHER ==
[2019-04-28 12:21] VITALS: BMI 31.8
--- NOTE | 2019-04-28 12:54 | ULT ---
ULTRASOUND BIOPHYSICAL PROFILE ULTRASOUND OF THE UMBILICAL ARTERY WITH DOPPLER: HISTORY: Gestational hypertension. FINDINGS: A single live intrauterine gestation is seen with a heart rate of 153 b.p.m. CLAUDETTE measures 11 c m. Placenta is posteriorly located without evidence of placenta previa. position is vertex. Umbilical artery measurements are as follows: Proximal: PSV 84 cm/s, EDV 34 cm/s Mid: PSV 59.5 cm/s, EDV 22.6 cm/s Distal: PSV 54.5 cm/s, EDV 24.4 cm/s The systolic to diastolic ratio measures 2.49 in the proximal aspect, 2.63 in the mid and 2.23 in the distal aspect. OB BIOPHYSICAL PROFILE: tone: 2 breathin movements: 2 Amniotic fluid: 2 The ultrasound biophysical profile score is 8 out of 8. POS: [facility]
[2019-04-28] MEDS ORDERED: Promethazine HCl 25 MG/ML VIAL IM PRN (17:05)
[2019-04-28] MEDS ORDERED: hydrALAZINE 20 MG/ML VIAL SLOW IVP PRN (17:05)
[2019-04-28] MEDS ORDERED: Butorphanol Tartrate 1 MG/ML VIAL SLOW IVP PRN (17:05)
[2019-04-28] MEDS: Lactated Ringer's 1,000 ML IV SCH (17:20)
[2019-04-28] MEDS ORDERED: Lidocaine 1% (PF) 30 ML VIAL SC PRN (18:01)
[2019-04-28] MEDS ORDERED: NS / Oxytocin 40 units/1000ml 1,000 ML IV PRN (18:01)
[2019-04-28 19:12] LABS: Hemoglobin 11.4 g/dL (12.0-16.0); Mean Corpuscular HGB CONC 35.8 g/dL (32.0-36.0); Mean Corpuscular Hemoglobin 28.8 pg (27.0-31.0); Mean Corpuscular Volume 80.4 fL (78.0-98.0); Mean Platelet Volume 10.5 fL (7.4-10.4); Platelet Count 174 thou/uL (130-400); RBC Distribution Width 12.2 % (11.5-14.5); Red Blood Cell (RBC) Count 3.95 mill/uL (4.20-5.40); White Blood Cell (WBC) Count 9.9 thou/uL (4.8-10.8)
[2019-04-28 19:33] LABS: ALT (SGPT) 11 U/L (8-55); AST (SGOT) 12 U/L (5-34); Alkaline Phosphatase 126 U/L (40-150); Anion Gap 12 mmol/L (10-20); BUN (Urea Nitrogen) 7 mg/dL (7.0-18.7); Bilirubin, Total 0.3 mg/dL (0.2-1.2); Calc. Creatinine Clearance 182 mL/min (70-130); Calcium 8.4 mg/dL (7.8-10.44); Carbon Dioxide 23 mmol/L (22-29); Chloride 105 mmol/L (98-107); Estimated GFR-MDRD Greater than 90; Glucose 102 mg/dL (70-105); Sodium 137 mmol/L (136-145)
[2019-04-28 19:52] LABS: HBSAg Index 0.41 S/CO (0-0.99); Hep B Surf Ag Non-Reactive S/CO (NonReactive)
[2019-04-28 20:06] LABS: Creatinine, Urine 34.61 mg/dL (47-110); Protein, Urine Random Quant Less than 10 mg/dL (1-14)
[2019-04-28 20:32] LABS: Syphilis Antibody Nonreactive (Nonreactive); Syphilis Antibody Index 0.03 S/CO (<1.00 Non-Reactive)
[2019-04-29] MEDS: Potassium Chloride 20 MEQ TAB PO SCH ×2 (07:24→19:25)
[2019-04-29] MEDS: Lactated Ringer's 1,000 ML IV SCH ×3 (07:28→20:44)
[2019-04-29] MEDS ORDERED: Naloxone HCl 0.4 mg/ml Vial IVP PRN ×2 (10:36)
[2019-04-29] MEDS ORDERED: Ondansetron PF 4 MG/2 ML Vial IVP PRN (10:36)
[2019-04-29] MEDS ORDERED: Promethazine HCl 25 MG/ML VIAL IM PRN (10:36)
[2019-04-29] MEDS ORDERED: diphenhydrAMINE 50 MG/ML VIAL IVP PRN (10:36)
[2019-04-29] MEDS ORDERED: Lactated Ringer's 500 ML IV PRN (10:36)
[2019-04-29] MEDS ORDERED: ePHEDrine/0.9% NaCl/PF SYRINGE 50 mg/10 ml SLOW IVP PRN (10:36)
[2019-04-29] MEDS ORDERED: Acetaminophen 325 MG TAB PO PRN (10:36)
[2019-04-29] MEDS ORDERED: Communication Order-Pharmacy FS SCH (10:45)
[2019-04-29] MEDS ORDERED: Fentanyl 4 mcg/Bupivacaine 0.1% Cassette 100 ML EPIDURAL SCH (10:45)
[2019-04-29 19:44] LABS: Urine Total Volume 3950 mL (600-1600)
[2019-04-29 20:02] LABS: Protein, Urine Less than 10 mg/dL (1-14)
[2019-04-30] MEDS: Lactated Ringer's 1,000 ML IV SCH ×3 (02:39→22:15)
[2019-04-30] MEDS: Potassium Chloride 20 MEQ TAB PO SCH ×2 (10:49→18:14)
[2019-04-30] MEDS ORDERED: hydrALAZINE 20 MG/ML VIAL ONE (11:01)
[2019-04-30] MEDS ORDERED: hydrALAZINE 20 MG/ML VIAL SLOW IVP PRN (11:29)
[2019-04-30] MEDS ORDERED: hydrALAZINE 20 MG/ML VIAL SLOW IVP SCH ×2 (11:30→16:45)
[2019-04-30] MEDS: Ondansetron PF 4 MG/2 ML Vial IVP PRN (19:30)
[2019-05-01] MEDS: Potassium Chloride 20 MEQ TAB PO SCH ×2 (08:14→17:27)
[2019-05-01] MEDS: Ondansetron PF 4 MG/2 ML Vial IVP PRN (11:41)
[2019-05-02] MEDS: Potassium Chloride 20 MEQ TAB PO SCH ×2 (08:53→16:35)
[2019-05-02] MEDS: Lactated Ringer's 1,000 ML IV SCH (16:58)
[2019-05-03] MEDS: hydrALAZINE 20 MG/ML VIAL SLOW IVP PRN ×4 (05:25→14:56)
[2019-05-03] MEDS: Lactated Ringer's 1,000 ML IV SCH (08:20)
[2019-05-03] MEDS: Potassium Chloride 20 MEQ TAB PO SCH ×2 (10:01→21:14)
[2019-05-03] MEDS: Ondansetron PF 4 MG/2 ML Vial IVP PRN (14:23)
[2019-05-03] MEDS: Acetaminophen 500 MG TAB PO PRN ×2 (15:52→22:01)
[2019-05-04] MEDS: Potassium Chloride 20 MEQ TAB PO SCH ×2 (09:14→19:03)
[2019-05-04] MEDS: Lactated Ringer's 1,000 ML IV SCH ×3 (19:47→22:31)
[2019-05-04] MEDS: hydrALAZINE 20 MG/ML VIAL SLOW IVP PRN (21:26)
[2019-05-05] MEDS: hydrALAZINE 20 MG/ML VIAL SLOW IVP PRN ×3 (02:16→09:49)
[2019-05-05 08:42] LABS: Hemoglobin 11.7 g/dL (12.0-16.0); Mean Corpuscular HGB CONC 34.1 g/dL (32.0-36.0); Mean Corpuscular Volume 79.3 fL (78.0-98.0); Mean Platelet Volume 10.5 fL (7.4-10.4); Platelet Count 178 thou/uL (130-400); RBC Distribution Width 12.7 % (11.5-14.5); Red Blood Cell (RBC) Count 4.34 mill/uL (4.20-5.40); White Blood Cell (WBC) Count 9.8 thou/uL (4.8-10.8)
[2019-05-05 09:08] LABS: ALT (SGPT) 7 U/L (8-55); AST (SGOT) 12 U/L (5-34); Albumin 2.9 g/dL (3.5-5.0); Alkaline Phosphatase 130 U/L (40-150); Anion Gap 13 mmol/L (10-20); BUN (Urea Nitrogen) 9 mg/dL (7.0-18.7); Bilirubin, Total 0.3 mg/dL (0.2-1.2); Calc. Creatinine Clearance 162 mL/min (70-130); Calcium 8.8 mg/dL (7.8-10.44); Carbon Dioxide 20 mmol/L (22-29); Chloride 107 mmol/L (98-107); Estimated GFR-MDRD Greater than 90; Globulin 3.1 g/dL (2.4-3.5); Glucose 74 mg/dL (70-105); Sodium 136 mmol/L (136-145)
[2019-05-05] MEDS: Ferrous Sulfate 325 MG TAB PO SCH (09:21)
[2019-05-05] MEDS: Acetaminophen 500 MG TAB PO PRN (09:21)
[2019-05-05] MEDS: Potassium Chloride 20 MEQ TAB PO SCH (09:21)
[2019-05-05] MEDS: Prenatal Vitamin 1 TAB PO SCH (09:21)
[2019-05-05] MEDS ORDERED: hydrOXYzine Pamoate 25 mg Capsule PO SCH (11:15)
[2019-05-06] MEDS: Ferrous Sulfate 325 MG TAB PO SCH ×3 (00:34→17:03)
[2019-05-06] MEDS: Potassium Chloride 20 MEQ TAB PO SCH ×3 (00:34→17:04)
[2019-05-06] MEDS: Prenatal Vitamin 1 TAB PO SCH (07:50)
[2019-05-06] MEDS: hydrALAZINE 20 MG/ML VIAL SLOW IVP PRN (16:15)
[2019-05-07] MEDS: Ferrous Sulfate 325 MG TAB PO SCH (10:13)
[2019-05-07] MEDS: Prenatal Vitamin 1 TAB PO SCH (10:15)
[2019-05-07] MEDS: Potassium Chloride 20 MEQ TAB PO SCH (10:15)
[2019-05-07] MEDS: hydrALAZINE 20 MG/ML VIAL SLOW IVP PRN ×3 (10:22→18:29)
[2019-05-07] MEDS: Acetaminophen 500 MG TAB PO PRN (11:50)
[2019-05-07] MEDS: Ondansetron PF 4 MG/2 ML Vial IVP PRN (12:23)
[2019-05-08] MEDS: Ferrous Sulfate 325 MG TAB PO SCH ×3 (03:57→17:03)
[2019-05-08] MEDS: Potassium Chloride 20 MEQ TAB PO SCH ×3 (03:57→17:03)
[2019-05-08] MEDS: hydrALAZINE 20 MG/ML VIAL SLOW IVP PRN ×3 (04:51→19:57)
--- NOTE | 2019-05-08 09:15 | ULT ---
LIMITED OBSTETRICAL ULTRASOUND: INDICATIONS: History of gestational diabetes. COMPARISON: Prior exam dated 04/28/2019. FINDINGS: There is a single live intrauterine gestation in cephalic presentation. The placenta is posterior in location without evidence of previa. Cardiac activity is noted at 141-160 beats per minute. CLAUDETTE is 9.1 cm, which is just above the 5th percentile for gestational age. Cervical length is 3.8 cm. Biparietal diameter is 7.85 cm, giving an estimated gestational age of 31 weeks and 4 days (5th perce ntile). Head circumference is 28.79 cm, giving an estimated gestational age of 31 weeks and 5 days (1st perce ntile). Abdominal circumference is 27.52 cm, giving an estimated gestational age of 31 weeks and 4 days (8th percentile). Femoral length is 6.47 cm, giving an estimated gestational age of 33 weeks and 3 days (38th percentil e). The estimated weight is 1910 g (12th percentile). The average gestational age by ultrasound is 32 weeks and 1 day with an estimated due date of 07/02/2019. The clinical age is 33 weeks and 3 days with an estimated due date of 06/23/2019. Umbilical artery sampling demonstrates an antegrade low resistance waveform. The peak systolic veloc ity at the level of the cord insertion is a 85.8 cm/s with a systolic/diastolic ratio of 2.98. The peak systolic velocity at the mid umbilical artery is 72.1 cm/s with a systolic/diastolic ratio of 2. 4. The peak systolic velocity at the level of the placenta is 52.6 cm/s with a systolic/diastolic ratio of 2.33 IMPRESSION: Small for gestational age and oligohydramnios is suspicious for developing placental insufficiency. T he umbilical artery Doppler waveform appears within normal limits. Close clinical and sonographic follow-up is recommended.. Transcribed Date/Time: 05/08/2019 9:59 AM
[2019-05-08] MEDS: Prenatal Vitamin 1 TAB PO SCH (10:32)
[2019-05-09] MEDS: Ferrous Sulfate 325 MG TAB PO SCH ×2 (09:07→23:14)
[2019-05-09] MEDS: Prenatal Vitamin 1 TAB PO SCH (09:07)
[2019-05-09] MEDS: Potassium Chloride 20 MEQ TAB PO SCH ×2 (09:07→23:14)
[2019-05-09] MEDS ORDERED: hydrOXYzine Pamoate 25 mg Capsule PO PRN (19:03)
[2019-05-09] MEDS ORDERED: Calcium Carbonate 500 MG ChewTAB PO PRN (20:13)
[2019-05-09] MEDS: hydrALAZINE 20 MG/ML VIAL SLOW IVP PRN ×2 (20:52→21:19)
[2019-05-09] MEDS ORDERED: Famotidine 20 MG TAB PO SCH (21:00)
[2019-05-09] MEDS: Ondansetron PF 4 MG/2 ML Vial IVP PRN (21:34)
[2019-05-09 21:47] LABS: Urine Total Volume 875 mL (600-1600)
[2019-05-09 22:08] LABS: Protein - 24 Hr 359 mg/24 hr (Less than 300); Protein, Urine 41 mg/dL (1-14)
[2019-05-09 23:11] LABS: #Monocytes 1.2 thou/uL (0.11-0.59); %Basophils 0.1 % (0.0-1.0); %Eosinophils 0.2 % (0.0-10.0); %Lymphocytes 24.3 % (21.0-51.0); %Monocytes 14.2 % (0.0-10.0); %Neutrophils 61.1 % (42.0-75.0); Mean Corpuscular HGB CONC 33.9 g/dL (32.0-36.0); Mean Corpuscular Hemoglobin 27.4 pg (27.0-31.0); Mean Corpuscular Volume 80.8 fL (78.0-98.0); Mean Platelet Volume 10.6 fL (7.4-10.4); Platelet Count 157 thou/uL (130-400); RBC Distribution Width 13.1 % (11.5-14.5); Red Blood Cell (RBC) Count 4.36 mill/uL (4.20-5.40); White Blood Cell (WBC) Count 8.2 thou/uL (4.8-10.8)
[2019-05-09 23:15] LABS: ALT (SGPT) 10 U/L (8-55); AST (SGOT) 14 U/L (5-34); Alkaline Phosphatase 152 U/L (40-150); Anion Gap 13 mmol/L (10-20); BUN (Urea Nitrogen) 7 mg/dL (7.0-18.7); Bilirubin, Total 0.4 mg/dL (0.2-1.2); Calc. Creatinine Clearance 156 mL/min (70-130); Calcium 9.5 mg/dL (7.8-10.44); Carbon Dioxide 20 mmol/L (22-29); Chloride 107 mmol/L (98-107); Estimated GFR-MDRD Greater than 90; Globulin 3.2 g/dL (2.4-3.5); Glucose 82 mg/dL (70-105); Protein, Total 6.2 g/dL (6.0-8.3); Sodium 136 mmol/L (136-145)
[2019-05-09] MEDS ORDERED: Magnesium Sulfate 20 gm/500 ml 20 GM/500 ML BAG ONE (23:41)
[2019-05-10] MEDS ORDERED: Calcium Gluc 4.6 MEQ/10 ML (100 MG/ML) SLOW IVP PRN (00:14)
[2019-05-10] MEDS ORDERED: Magnesium Sulfate 20 gm/500 ml 20 GM/500 ML BAG IVPB SCH ×2 (00:15→05:26)
[2019-05-10] MEDS ORDERED: Bicitra 30 ML UDCUP PO SCH (00:15)
[2019-05-10] MEDS ORDERED: Magnesium Sulfate 20 GM/WATER 500 ML BAG IVPB SCH (00:15)
[2019-05-10] MEDS ORDERED: Bicitra 30 ML UDCUP ONE (00:23)
[2019-05-10] MEDS ORDERED: CEFAZOLIN 2 GM in Premix Bag 1 BAG IVPB SCH (00:30)
[2019-05-10] MEDS ORDERED: MORPHINE 5 MG/10 ML PF VIAL ONE (00:34)
[2019-05-10] MEDS ORDERED: Ondansetron PF 4 MG/2 ML Vial ONE ×2 (00:58→15:26)
[2019-05-10] MEDS ORDERED: ePHEDrine/0.9% NaCl/PF SYRINGE 50 mg/10 ml ONE (00:58)
[2019-05-10] MEDS ORDERED: Oxytocin 10 UNITS/ML VIAL ONE (00:58)
[2019-05-10] MEDS ORDERED: Meperidine HCl/PF 25 MG/ML VIAL SLOW IVP PRN (01:34)
[2019-05-10] MEDS ORDERED: Promethazine HCl 25 MG SUPP PR PRN (01:34)
[2019-05-10] MEDS ORDERED: HYDROmorphone 2 MG/ML VIAL SLOW IVP PRN (01:34)
[2019-05-10] MEDS ORDERED: L&D-Morphine 4 MG/ML VIAL SLOW IVP PRN (01:34)
[2019-05-10] MEDS ORDERED: Ketorolac Tromethamine 30 MG/ML VIAL IVP PRN (01:34)
[2019-05-10] MEDS ORDERED: diphenhydrAMINE 50 MG/ML VIAL IVP PRN (01:34)
[2019-05-10] MEDS ORDERED: Naloxone HCl 0.4 mg/ml Vial IV PRN (01:34)
[2019-05-10] MEDS ORDERED: Naloxone HCl 0.4 mg/ml Vial IVP PRN ×2 (01:34)
[2019-05-10] MEDS ORDERED: Ondansetron HCl/PF 4 MG/2 ML Vial IVP PRN (01:34)
[2019-05-10] MEDS ORDERED: Ondansetron PF 4 MG/2 ML Vial IVP PRN ×2 (01:34→05:26)
[2019-05-10] MEDS ORDERED: Promethazine HCl 25 MG/ML VIAL IM PRN ×2 (01:34→05:26)
[2019-05-10] MEDS ORDERED: Communication Order-Pharmacy FS SCH (01:45)
[2019-05-10] MEDS: Ondansetron PF 4 MG/2 ML Vial IVP PRN (03:01)
[2019-05-10] MEDS ORDERED: Promethazine HCl 25 MG/ML VIAL ONE (04:41)
[2019-05-10] MEDS ORDERED: NS / Oxytocin 40 units/1000ml 1,000 ML ONE (05:04)
[2019-05-10] MEDS ORDERED: Simethicone Chewable 80 MG TAB PO PRN (05:26)
[2019-05-10] MEDS ORDERED: NS / Oxytocin 40 units/1000ml 1,000 ML IV SCH (05:26)
[2019-05-10] MEDS ORDERED: Calcium Gluconate 4.6 MEQ in Sodium Chloride 0.9% 100 ML IVPB PRN (05:26)
[2019-05-10] MEDS ORDERED: hydrALAZINE 20 MG/ML VIAL SLOW IVP PRN ×2 (05:26)
[2019-05-10] MEDS ORDERED: Meperidine HCl/PF 25 MG/ML VIAL IM PRN (05:26)
[2019-05-10] MEDS ORDERED: diphenhydrAMINE 25 MG CAP PO PRN (05:26)
[2019-05-10] MEDS ORDERED: Bisacodyl 10 MG SUPP PR PRN (05:26)
[2019-05-10] MEDS ORDERED: HYDROcodone/Acetaminophen 5/325 mg Tablet PO PRN (05:26)
[2019-05-10] MEDS: Ibuprofen 800 MG TAB PO SCH ×3 (06:03→21:29)
[2019-05-10] MEDS ORDERED: Adacel (T-DAP) 0.5 ML SYRINGE IM ONE (09:00)
[2019-05-10] MEDS: Docusate Calcium (SURFAK) 240 MG CAP PO SCH ×2 (10:11→21:29)
[2019-05-10] MEDS: Ferrous Sulfate 325 MG TAB PO SCH (10:12)
[2019-05-10] MEDS: Prenatal Vitamin 1 TAB PO SCH (10:12)
--- NOTE | 2019-05-10 13:05 | OP ---
DATE OF PROCEDURE: 05/10/2019 PREOPERATIVE DIAGNOSES: 1. 33-week . 2. Preeclampsia with severe features, symptomatic. POSTOPERATIVE DIAGNOSES: 1. 33-week . 2. Preeclampsia with severe features, symptomatic. PROCEDURE PERFORMED: Primary low cervical transverse . CO-SURGEON: Dr. Perez. DESCRIPTION OF PROCEDURE: After informed consent was obtained from the patient , she was taken to the operating room, where spinal anesthesia was administered. She was prepped and draped in the usual sterile fashion. A Pfannenstiel incision was created with a #10 scalpel blade and carried down to the fascia. Fascial incision was extended transversely with Mcfadden scissors. The superior fascial segment was grasped with Bob's and elevated and the underlying rectus muscles were dissected away first bluntly and then sharply with the Mcfadden scissors. This was repeated with the inferior fascial segment. The rectus muscles were divided in the midline bluntly. The peritoneum was entered bluntly. Bladder blade was inserted. The uterus was entered in the low-transverse fashion with a clean #10 scalpel blade and blunt digital dissection. Hysterotomy was extended superolaterally with blunt dissection. Membranes were ruptured with an Allis. Clear amniotic fluid was encountered. The vertex was delivered onto the operative field followed by the remainder of the , easily and atraumatically. Cord was clamped x2, and a vigorous crying was handed to the staff in attendance. Cord blood was obtained. The placenta was expressed and removed easily. Uterus was exteriorized, cleared of clots and debris. The uterus was repaired with a running locking suture of 0 Vicryl in a single full-thickness layer followed by a series of interrupted [id number] sutures of 0-Vicryl along the incision line. Hemostasis was observed. Seprafilm was placed over the repaired uterine incision and the anterior uterine fundus. The uterus was returned to the abdomen. Hemostasis was again observed. Peritoneum was repaired with a running suture of 3-0 Vicryl. The fascia was repaired with a running suture of 0 PDS. Three interrupted sutures of 3-0 Vicryl placed in the subdermal layer to reapproximate the skin, which was closed with skin milind. Sponge and instrument counts were correct x4. She tolerated the procedure well and suffered no acute complications. She was taken to Recovery in stable condition , the infant to the NICU in stable condition. FINDINGS: Viable female infant, Apgars of 8 and 9 at one and five minutes respectively. SPECIMENS: Placenta to pathology. COMPLICATIONS: None. ESTIMATED BLOOD LOSS: 600 mL. Job ID: [id number] MTDD
[2019-05-10] MEDS ORDERED: ePHEDrine 50 MG/ML VIAL ONE (15:26)
[2019-05-10] MEDS ORDERED: Magnesium Sulfate 20 gm/500 ml 20 GM/500 ML BAG ONE (17:44)
[2019-05-10] MEDS: cloNIDine 0.1 MG TAB PO PRN (18:31)
[2019-05-11] MEDS ORDERED: Magnesium Sulfate 20 gm/500 ml 20 GM/500 ML BAG IVPB SCH (00:30)
[2019-05-11] MEDS: Ferrous Sulfate 325 MG TAB PO SCH ×3 (01:29→22:59)
[2019-05-11 05:53] LABS: Hemoglobin 11.7 g/dL (12.0-16.0); Mean Corpuscular HGB CONC 34.6 g/dL (32.0-36.0); Mean Corpuscular Hemoglobin 28.2 pg (27.0-31.0); Mean Corpuscular Volume 81.6 fL (78.0-98.0); Mean Platelet Volume 9.9 fL (7.4-10.4); Platelet Count 165 thou/uL (130-400); RBC Distribution Width 13.4 % (11.5-14.5); Red Blood Cell (RBC) Count 4.16 mill/uL (4.20-5.40); White Blood Cell (WBC) Count 10.5 thou/uL (4.8-10.8)
[2019-05-11] MEDS: Ibuprofen 800 MG TAB PO SCH ×3 (06:17→21:52)
[2019-05-11] MEDS: Prenatal Vitamin 1 TAB PO SCH (09:26)
[2019-05-11] MEDS: Docusate Calcium (SURFAK) 240 MG CAP PO SCH ×2 (09:27→21:52)
[2019-05-11] MEDS: Losartan/Hydrochlorothiazide 100 mg/25 mg Tablet PO SCH (09:27)
--- NOTE | 2019-05-11 11:37 | OP ---
DATE OF PROCEDURE: 05/10/2019 ADDENDUM: I was present and scrubbed to assist the primary low-transverse with Dr. Pham. Please see his note for full details. Job ID: [id number]
[2019-05-11] MEDS: cloNIDine 0.1 MG TAB PO PRN ×2 (16:33→23:50)
[2019-05-11] MEDS: HYDROcodone/Acetaminophen 5/325 mg Tablet PO PRN (19:50)
[2019-05-12] MEDS: Ibuprofen 800 MG TAB PO SCH ×3 (05:55→20:55)
[2019-05-12] MEDS: Prenatal Vitamin 1 TAB PO SCH (08:18)
[2019-05-12] MEDS: Docusate Calcium (SURFAK) 240 MG CAP PO SCH ×2 (08:18→20:55)
[2019-05-12] MEDS: Losartan/Hydrochlorothiazide 100 mg/25 mg Tablet PO SCH (08:18)
[2019-05-12] MEDS: HYDROcodone/Acetaminophen 5/325 mg Tablet PO PRN ×3 (08:18→16:27)
[2019-05-12] MEDS: cloNIDine 0.1 MG TAB PO PRN ×3 (08:20→16:25)
[2019-05-12] MEDS: Ferrous Sulfate 325 MG TAB PO SCH ×2 (09:21→21:58)
[2019-05-12] MEDS ORDERED: cloNIDine 0.1 MG TAB PO SCH (18:15)
[2019-05-12] MEDS ORDERED: Labetalol 100 MG TAB PO SCH (21:00)
[2019-05-13] MEDS: cloNIDine 0.1 MG TAB PO PRN ×3 (00:36→15:54)
[2019-05-13] MEDS: Ibuprofen 800 MG TAB PO SCH ×3 (06:24→22:10)
[2019-05-13] MEDS: Ferrous Sulfate 325 MG TAB PO SCH ×2 (07:18→20:18)
[2019-05-13] MEDS: Prenatal Vitamin 1 TAB PO SCH (09:27)
[2019-05-13] MEDS: Labetalol 100 MG TAB PO SCH ×3 (09:27→22:10)
[2019-05-13] MEDS: Losartan/Hydrochlorothiazide 100 mg/25 mg Tablet PO SCH (09:27)
[2019-05-13] MEDS: Docusate Calcium (SURFAK) 240 MG CAP PO SCH ×2 (09:27→22:10)
[2019-05-14] MEDS: Ibuprofen 800 MG TAB PO SCH ×3 (05:48→20:41)
[2019-05-14] MEDS: Ferrous Sulfate 325 MG TAB PO SCH ×2 (09:20→20:37)
[2019-05-14] MEDS: Labetalol 100 MG TAB PO SCH ×3 (09:21→20:41)
[2019-05-14] MEDS: Prenatal Vitamin 1 TAB PO SCH (09:21)
[2019-05-14] MEDS: Docusate Calcium (SURFAK) 240 MG CAP PO SCH ×2 (09:21→20:41)
[2019-05-14] MEDS: Losartan/Hydrochlorothiazide 100 mg/25 mg Tablet PO SCH (09:22)
[2019-05-14] MEDS: cloNIDine 0.1 MG TAB PO PRN (16:45)
[2019-05-14 20:31] VITALS: BP 138/90; TEMP 98.1
== END 2019-05-14 21:54 | disposition home or self-care (01) | DRG 788 ==
LOC: L&D/OP 11:24 → L&D-LIB 16:40 → L&D 04-30 10:00 → L&D-LIB 04-30 10:01 → 3SW 05-11 02:00
PROVIDERS: ADMIT Family Medicine; ATTEND Family Medicine
PROC: 10D00Z1 Extraction of Products of Conception, Low, Open Approach (ICD-10-PCS; principal; 2019-05-10)
DX: O14.14 Severe pre-eclampsia complicating childbirth (principal); Z3A.33 33 weeks gestation of pregnancy; Z37.0 Single live birth
CPT/HCPCS: 36415; 51702; 59025; 76700; 76815; 76819; 80053; 82570; 83735; 84156; 85025; 85027; 86780; 86850; 86900; 86901; 87340; 88307; 99285; J0360; J0690; J2274; J2405; J2550; J2590; J3475; J3490; Q0177

== ENCOUNTER 2019-06-02 10:30 | Inpatient (IN) | payer OTHER ==
[2019-06-02] MEDS ORDERED: Ondansetron PF 4 MG/2 ML Vial ONE (10:57)
[2019-06-02 11:12] LABS: Hemoglobin 15.7 g/dL (12.0-16.0); Mean Corpuscular Hemoglobin 27.3 pg (27.0-31.0); Mean Corpuscular Volume 78.1 fL (78.0-98.0); Platelet Count 327 thou/uL (130-400); RBC Distribution Width 12.8 % (11.5-14.5); Red Blood Cell (RBC) Count 5.75 mill/uL (4.20-5.40); White Blood Cell (WBC) Count 6.8 thou/uL (4.8-10.8)
[2019-06-02 11:18] LABS: ALT (SGPT) 31 U/L (8-55); AST (SGOT) 29 U/L (5-34); Albumin 4.5 g/dL (3.5-5.0); Alkaline Phosphatase 151 U/L (40-150); Anion Gap 19 mmol/L (10-20); BUN (Urea Nitrogen) 34 mg/dL (7.0-18.7); Bilirubin, Total 0.5 mg/dL (0.2-1.2); Calc. Creatinine Clearance 0 mL/min (70-130); Carbon Dioxide 18 mmol/L (22-29); Chloride 101 mmol/L (98-107); Estimated GFR-MDRD 21; Globulin 3.8 g/dL (2.4-3.5); Glucose 95 mg/dL (70-105); Lipase 23 U/L (8-78); Protein, Total 8.3 g/dL (6.0-8.3); Sodium 134 mmol/L (136-145)
[2019-06-02 11:25] LABS: Band 15 % (5-11); Eosinophils 1 % (0-10); Lymphocytes 37 % (21-51); MDiff Complete? YES; Monocytes 8 % (0-10); Neutrophil 37 % (42-75); RBC Morphology Normal; Reactive Lymphocytes 2 % (0-10)
--- NOTE | 2019-06-02 12:18 | CT ---
CT STONE PROTOCOL: HISTORY:Nausea, vomiting and diarrhea associated with abdominal cramps, weakness and lightheadedness patient is 3 weeks and had a section. COMPARISON: None DISCLAIMER: Absence of oral and IV contrast reduces the sensitivity of the exam particularly for the evaluation of solid organs and bowel. FINDINGS: The lung bases are clear. No free air is seen in the abdomen or pelvis. No calcified gallstones are n oted. There is a small amount of free fluid in the pelvis. The small bowel loops are not abnormally dilated. No calculi are seen in the kidneys ureters or the urinary bladder. No hydroureteronephrosis is seen o n either side. The appendix is normal. Uterus and ovaries are present. No acute osseous abnormalities are seen. IMPRESSION: No CT evidence of urinary tract calculi or obstruction.
[2019-06-02] MEDS ORDERED: Acetaminophen 325 MG TAB PO PRN (13:22)
[2019-06-02] MEDS ORDERED: Ondansetron PF 4 MG/2 ML Vial IVP PRN (13:22)
[2019-06-02] MEDS ORDERED: Ondansetron ODT 4 MG TAB PO PRN (13:22)
[2019-06-02 14:39] LABS: Bacteria/HPF 1+ HPF (None Seen); Bilirubin Negative (Negative); Blood, Urine Trace (Negative); Clarity Turbid (Clear); Glucose, Urine (Dipstick) Normal (Negative); Leukocyte 25 Leu/uL (Negative); Nitrite Negative (Negative); Protein, Urine (Dipstick) 10 mg/dL (Neg-Trace); RBC/HPF 0-3 HPF (0-3); Squamous Epithelial 0-3 HPF (0-3); Urobilinogen Normal mg/dL (Less than 2); WBC/HPF 21-50 HPF (0-3)
[2019-06-02 15:24] VITALS: BMI 29.2
[2019-06-02] MEDS: Sodium Chloride 0.9% 1,000 ML IV SCH (15:51)
[2019-06-02] MEDS: Labetalol 100 MG TAB PO SCH (20:10)
[2019-06-02] MEDS: Ferrous Sulfate 325 MG TAB PO SCH (20:10)
[2019-06-03] MEDS: Sodium Chloride 0.9% 1,000 ML IV SCH ×3 (00:13→16:37)
[2019-06-03 06:47] LABS: Hemoglobin 12.8 g/dL (12.0-16.0); Mean Corpuscular HGB CONC 34.9 g/dL (32.0-36.0); Mean Corpuscular Hemoglobin 28.1 pg (27.0-31.0); Mean Corpuscular Volume 80.5 fL (78.0-98.0); Platelet Count 265 thou/uL (130-400); RBC Distribution Width 12.6 % (11.5-14.5); Red Blood Cell (RBC) Count 4.55 mill/uL (4.20-5.40); White Blood Cell (WBC) Count 6.1 thou/uL (4.8-10.8)
[2019-06-03 07:27] LABS: Anion Gap 14 mmol/L (10-20); BUN (Urea Nitrogen) 20 mg/dL (7.0-18.7); Calc. Creatinine Clearance 100 mL/min (70-130); Calcium 7.6 mg/dL (7.8-10.44); Carbon Dioxide 17 mmol/L (22-29); Chloride 111 mmol/L (98-107); Estimated GFR-MDRD 70; Glucose 99 mg/dL (70-105); Potassium 3.7 mmol/L (3.5-5.1); Sodium 138 mmol/L (136-145)
--- NOTE | 2019-06-03 07:54 | HP ---
PRIMARY CARE PHYSICIAN: Ricky Pham MD. CHIEF COMPLAINT: Nausea, vomiting, diarrhea. HISTORY OF PRESENT ILLNESS: Ms. Figueroa is a 29-year-old female, with past medical history of hypertension and is 3 weeks of a little baby girl, she had presented to [facility] earlier today after she has been experiencing roughly 3 days of nausea, vomiting, and diarrhea, and she states that she has over 10 episodes per day of vomiting and diarrhea. She states that every time that she try to eat or drink anything, it will go right through her. She states that there were some family members including her brother with the same symptoms roughly a week to week and a half ago. Currently, she denies any fever, chills, any headache, blurred vision or dizziness, chest pain, palpitations. She was supposed to see Dr. Pham for her checkup; however, she has not done so yet. Her labs indicated an acute kidney injury with a creatinine of 3.17 and a BUN of 34 with an estimated GFR of 21, she was started on IV fluid hydration and also given Zofran for her nausea, currently she states that she is feeling much better after the dose of Zofran. She also underwent a CT of abdomen and pelvis which was negative for any stone obstruction or any acute abnormalities at this time. REVIEW OF SYSTEMS: All other systems reviewed and found to be negative unless mentioned in the HPI. PAST MEDICAL HISTORY: Includes hypertension. PAST SURGICAL HISTORY: section x2. PSYCHIATRIC HISTORY: Includes anxiety. SOCIAL HISTORY: Denies any alcohol, tobacco, or illicit drug use. KNOWN ALLERGIES: No known drug allergies. CURRENT HOME MEDICATIONS: 1. Losartan/hydrochlorothiazide 100/25 one tablet oral daily. 2. vitamin daily. 3. Labetalol 200 mg oral t.i.d. 4. Ibuprofen 800 mg as needed every 8 hours. 5. Hydrocodone/acetaminophen 5/325 one tablet oral every 4 hours as needed for pain. 6. Ferrous sulfate 325 mg oral twice daily. 7. Pepcid p.o. b.i.d. PHYSICAL EXAMINATION: VITAL SIGNS: BP 116/81, pulse 86, respirations 17, temperature 98.8, O2 saturation 97% on room air. GENERAL: The patient is awake, alert, and oriented x3. She is currently lying comfortably in bed and in no acute distress. Family at the bedside. HEENT: Atraumatic, normocephalic. Pupils are round and reactive to light. Extraocular muscles intact. Moist mucous membranes noted. NECK: Soft and supple. Trachea midline. CARDIOVASCULAR: Positive S1 and S2. Regular rate and rhythm. No murmur auscultated. LUNGS: Clear to auscultation bilaterally. No wheezes, rales, or rhonchi. ABDOMEN: Soft, nontender. Bowel sounds are hyperactive. There is a healing surgical wound in her lower abdomen from a previous recent section roughly 3 weeks ago. EXTREMITIES: Moves all extremities equal. Pedal and radial pulses 2+ bilaterally. No edema noted. NEUROLOGIC: Cranial nerves 2 through 12 grossly intact. No focal deficits noted. Speech intact and normal. Gait not assessed. SKIN: Warm, dry, and intact. No rashes. No ulceration noted except for noted above on her abdomen from previous section. PSYCHIATRIC: Good mood and affect. LABORATORY DATA: WBC 6.8, RBC 5.75, hemoglobin 15.7, platelets 327. Sodium 134, potassium 4.0, anion gap 19, BUN 34, creatinine 3.17, estimated GFR 21, glucose 95, troponin 0.013. Lipase 23. DIAGNOSTIC IMAGING: CT abdomen and pelvis without contrast showed there is no evidence of stone or obstruction or any acute abnormalities. ASSESSMENT AND PLAN: 1. Gastroenteritis, she will be maintained on IV fluid hydration with normal saline at 125 an hour, and she will be started on a clear liquid diet as tolerated, and we will advance as appropriate. She will also be treated with Zofran as needed and we will obtain stool cultures to rule out Clostridium difficile. If these are negative, she will be started on likely Imodium as needed for frequent stools. 2. Acute kidney injury. As above, she will be started on IV fluid hydration and recheck BMP in the morning. We will also hold her home dose of losartan/hydrochlorothiazide as this is nephrotoxic. 3. Hypertension, currently stable at this time. Monitor blood pressure and other vital signs closely. We will add p.r.n. medications as needed. 4. Deep venous thrombosis and gastrointestinal prophylaxis. 5. Code status is full code. DISPOSITION: Pending further workup and clinical findings, the patient will likely be discharged home hopefully in the next 1 to 2 days when she is feeling better and able to tolerate oral intake. Job ID: [id number]
[2019-06-03 08:02] LABS: Band 13 % (5-11); Eosinophils 1 % (0-10); Lymphocytes 42 % (21-51); MDiff Complete? YES; Monocytes 13 % (0-10); Neutrophil 31 % (42-75); RBC Morphology Normal
[2019-06-03] MEDS ORDERED: Famotidine 20 MG TAB PO SCH (09:00)
[2019-06-03] MEDS: Ferrous Sulfate 325 MG TAB PO SCH ×2 (09:29→19:58)
[2019-06-03] MEDS: Labetalol 100 MG TAB PO SCH ×3 (09:29→19:58)
--- NOTE | 2019-06-03 16:20 | PDOC.HOSPP ---
- Subjective Encounter Date: 06/03/19 Encounter Time: 10:45 Subjective: pt up in bed still has some diarrhea. she has a new born and i have told her not to have her baby around especially since she is ill. - Objective Vital Signs & Weight: Vital Signs (12 hours) Temp Pulse Resp BP BP Pulse Ox 06/03/19 15:13 84 122/86 06/03/19 11:10 98.6 F 90 18 119/84 99 06/03/19 09:29 97 101/77 06/03/19 07:50 99 06/03/19 07:44 98.6 F 97 20 101/77 99 Weight Admit Weight 187 lb Weight 187 lb I&O: 06/02/19 06/03/19 06/04/19 06:59 06:59 06:59 Intake Total 2875 Output Total 300 Balance 2575 Result Diagrams: 06/03/19 06:00 06/03/19 06:00 Hospitalist ROS - Review of Systems Respiratory: denies: cough, dry, shortness of breath, hemoptysis, SOB with excertion, pleuritic pain, sputum, wheezing, other Gastrointestinal: reports: diarrhea Genitourinary: denies: dysuria, frequency, incontinence, hematuria, retention, other - Medication Medications: Active Medications Generic Name Dose Route Start Last Admin Trade Name Freq PRN Reason Stop Dose Admin Acetaminophen 650 mg 06/02/19 13:22 06/02/19 20:09 Tylenol PO 650 mg Q4H PRN Administration Headache/Fever/Mild Pain (1-3) Famotidine 20 mg 06/03/19 09:00 06/03/19 09:29 Pepcid PO 20 mg DAILY CANDIE Administration Ferrous Sulfate 325 mg 06/02/19 21:00 06/03/19 09:29 Feosol PO 325 mg BID CANDIE Administration Sodium Chloride 1,000 mls @ 125 mls/hr 06/02/19 13:30 06/03/19 07:52 Normal Saline 0.9% IV 1,000 mls .Q8H CANDIE Administration Labetalol HCl 200 mg 06/02/19 21:00 06/03/19 15:13 Normodyne PO 200 mg TID CANDIE Administration Ondansetron HCl 4 mg 06/02/19 13:22 06/03/19 00:12 Zofran IVP 4 mg Q6H PRN Administration Nausea/Vomiting - Exam Neck: negative: supple, symmetric, no JVD, no thyromegaly, no lymphadenopathy, no carotid bruit, JVD Heart: negative: RRR, no murmur, no gallops, no rubs, normal peripheral pulses, irregular, diminshed peripheral pulses, murmur present, II/IV, III/IV Respiratory: negative: CTAB, no wheezes, no rales, no ronchi, normal chest expansion, no tachypnea, normal percussion, rales, rhonchi, tachypneic, wheezes Hosp A/P (1) Diarrhea Code(s): R19.7 - DIARRHEA, UNSPECIFIED Status: Acute (2) 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 pt's states that her diarrhea has improved. will monitor one more day. she has some bands but not elevated wbc and no fever. i have told her not to have her children around while she is sick especially her new born. she verbalizes understanding.
[2019-06-04] MEDS: Sodium Chloride 0.9% 1,000 ML IV SCH ×2 (00:20→08:13)
[2019-06-04 05:09] LABS: #Eosinphils 0.1 thou/uL (0.0-0.7); #Lymphocytes 2.4 thou/uL (1.20-3.40); #Monocytes 0.9 thou/uL (0.11-0.59); #Neutrophils 2.8 thou/uL (1.40-6.50); %Basophils 0.3 % (0.0-1.0); %Eosinophils 1.7 % (0.0-10.0); %Lymphocytes 38.3 % (21.0-51.0); %Monocytes 14.9 % (0.0-10.0); %Neutrophils 44.9 % (42.0-75.0); Hemoglobin 11.6 g/dL (12.0-16.0); Mean Corpuscular Hemoglobin 28.3 pg (27.0-31.0); Mean Corpuscular Volume 80.7 fL (78.0-98.0); Mean Platelet Volume 7.4 fL (7.4-10.4); Platelet Count 235 thou/uL (130-400); RBC Distribution Width 12.5 % (11.5-14.5); Red Blood Cell (RBC) Count 4.09 mill/uL (4.20-5.40); White Blood Cell (WBC) Count 6.3 thou/uL (4.8-10.8)
[2019-06-04 05:31] LABS: Anion Gap 11 mmol/L (10-20); BUN (Urea Nitrogen) 10 mg/dL (7.0-18.7); Calc. Creatinine Clearance 121 mL/min (70-130); Calcium 7.6 mg/dL (7.8-10.44); Carbon Dioxide 22 mmol/L (22-29); Chloride 112 mmol/L (98-107); Estimated GFR-MDRD 87; Glucose 89 mg/dL (70-105); Potassium 3.6 mmol/L (3.5-5.1); Sodium 141 mmol/L (136-145)
[2019-06-04 08:04] VITALS: TEMP 99.1
[2019-06-04] MEDS ORDERED: Famotidine 20 MG TAB PO SCH (09:00)
[2019-06-04] MEDS: Ferrous Sulfate 325 MG TAB PO SCH (10:01)
[2019-06-04] MEDS: Labetalol 100 MG TAB PO SCH (10:02)
[2019-06-04 10:04] VITALS: BP 132/93
--- NOTE | 2019-06-05 04:49 | DIS ---
DATE OF ADMISSION: 06/02/2019 DATE OF DISCHARGE: 06/04/2019 DISCHARGE DIAGNOSES: As of the followin. Gastroenteritis, diarrhea secondary to Cryptosporidium. 2. Cryptosporidium gastroenteritis and hypertension. HOSPITAL COURSE: The patient is a 29-year-old female, who initially is , had preeclampsia and was on blood pressure medications, who presented to the hospital on 06/02/2019 with complaints of nausea and diarrhea. The patient also was found to have acute kidney injury. Her initial creatinine was 3.17. This resolved through the hospital stay with hydration. She was 0.93 upon discharge. The patient's culture came back positive for Cryptosporidium. Her symptoms improved. She was . I have advised her against and she does have some elevated fecal lactoferrin. Since her symptoms improved, I have not prescribed her any medications including any of the antibiotics. She initially did have some bands which resolved without any further intervention with antibiotics. HOME MEDICATIONS: 1. I have discontinued her hydrochlorothiazide and her losartan. She is going to be on labetalol 200 mg t.i.d. I have advised her to check her blood pressure. If her blood pressure is normal, she could stop it or actually write it down, take it to her primary. 2. Iron 325 twice a day. 3. vitamin 1 p.o. daily. 4. Pepcid 1 p.o. b.i.d. Again, I have told her to follow up with her primary to see when she can resume her . PHYSICAL EXAMINATION: VITAL SIGNS: On discharge, her temperature was 99.1, pulse 94, respirations 18, 98% on room air, blood pressure 132/90. GENERAL: She is awake, alert, and oriented x3. Does not appear in distress. CV: S1, S2 present. No murmurs, rubs, or gallops. ABDOMEN: Soft, nontender. Bowel sounds are present x2. Job ID: [id number]
--- NOTE | 2019-06-06 12:29 | EKG ---
Test Reason : Blood Pressure : / mmHG Vent. Rate : 099 BPM Atrial Rate : 099 BPM P-R Int : 110 ms QRS Dur : 070 ms QT Int : 366 ms P-R-T Axes : 064 044 034 degrees QTc Int : 469 ms Sinus rhythm with short CA Possible Left atrial enlargement Borderline ECG Confirmed by YOLANDA RAMIREZ DO ([id number]), photography editor DORA SALOMON ([id number] on 06/06/2019 12:29:26 PM Referred By: Confirmed By:YOLANDA RAMIREZ DO
[2019-06-06 17:08] LABS: Norovirus GI Negative (Negative); Norovirus GII Negative (Negative)
== END 2019-06-04 10:56 | disposition home or self-care (01) | DRG 776 ==
LOC: ERS 10:30 → T4-A 13:10
PROVIDERS: ADMIT Internal Medicine; ATTEND Internal Medicine
DX: O99.63 Diseases of the digestive system complicating the puerperium (principal); A07.2 Cryptosporidiosis; O10.93 Unspecified pre-existing hypertension complicating the puerperium; Z79.899 Other long term (current) drug therapy
CPT/HCPCS: 36415; 74176; 80048; 80053; 81003; 81015; 83630; 83690; 84443; 84484; 85025; 87045; 87046; 87324; 87328; 87329; 87427; 87449; 87798; 87804; 93005; 96361; 96372; 96374; J0500; J2405

== ENCOUNTER 2019-06-07 18:26 | Emergency (ER) | payer OTHER ==
[2019-06-07 19:25] LABS: Bacteria/HPF None Seen HPF (None Seen); Bilirubin Negative (Negative); Blood, Urine 1+ (Negative); Clarity Clear (Clear); Glucose, Urine (Dipstick) Normal (Negative); Leukocyte Negative Leu/uL (Negative); Nitrite Negative (Negative); Protein, Urine (Dipstick) Negative (Neg-Trace); Squamous Epithelial 0-3 HPF (0-3); Urobilinogen Normal mg/dL (Less than 2); WBC/HPF 0-3 HPF (0-3)
[2019-06-07 19:36] LABS: Creatinine, Urine 81.21 mg/dL (47-110); Protein, Urine Random Quant Less than 10 mg/dL (1-14)
[2019-06-07 19:50] LABS: #Eosinphils 0.1 thou/uL (0.0-0.7); #Lymphocytes 1.4 thou/uL (1.20-3.40); #Monocytes 0.8 thou/uL (0.11-0.59); #Neutrophils 4.4 thou/uL (1.40-6.50); %Basophils 0.5 % (0.0-1.0); %Eosinophils 1.1 % (0.0-10.0); %Lymphocytes 20.8 % (21.0-51.0); %Monocytes 11.5 % (0.0-10.0); %Neutrophils 66.1 % (42.0-75.0); Hemoglobin 11.7 g/dL (12.0-16.0); Mean Corpuscular HGB CONC 35.3 g/dL (32.0-36.0); Mean Corpuscular Hemoglobin 28.1 pg (27.0-31.0); Mean Corpuscular Volume 79.7 fL (78.0-98.0); Mean Platelet Volume 8.5 fL (7.4-10.4); Platelet Count 220 thou/uL (130-400); RBC Distribution Width 12.7 % (11.5-14.5); Red Blood Cell (RBC) Count 4.17 mill/uL (4.20-5.40); White Blood Cell (WBC) Count 6.6 thou/uL (4.8-10.8)
[2019-06-07 20:13] LABS: ALT (SGPT) 27 U/L (8-55); AST (SGOT) 20 U/L (5-34); Albumin 3.8 g/dL (3.5-5.0); Alkaline Phosphatase 119 U/L (40-150); Anion Gap 12 mmol/L (10-20); BUN (Urea Nitrogen) 10 mg/dL (7.0-18.7); Bilirubin, Total 0.5 mg/dL (0.2-1.2); Calc. Creatinine Clearance 0 mL/min (70-130); Calcium 8.4 mg/dL (7.8-10.44); Carbon Dioxide 23 mmol/L (22-29); Chloride 109 mmol/L (98-107); Estimated GFR-MDRD Greater than 90; Globulin 3.2 g/dL (2.4-3.5); Glucose 89 mg/dL (70-105); Potassium 3.4 mmol/L (3.5-5.1); Sodium 141 mmol/L (136-145)
== END 2019-06-07 20:51 | disposition home or self-care (01) ==
LOC: ERS 18:26
DX: I10 Essential (primary) hypertension (principal); F41.9 Anxiety disorder, unspecified; Z79.899 Other long term (current) drug therapy
CPT/HCPCS: 80053; 81003; 81015; 82570; 84156; 84484; 85025; 93005

== ENCOUNTER 2019-06-15 07:16 | Observation (INO) | payer OTHER ==
[2019-06-15] MEDS ORDERED: hydrALAZINE 20 MG/ML VIAL ONE (08:51)
[2019-06-15] MEDS ORDERED: Senokot S 8.6-50 MG TAB PO PRN (09:34)
[2019-06-15] MEDS ORDERED: Acetaminophen 325 MG TAB PO PRN (09:34)
[2019-06-15] MEDS ORDERED: hydrALAZINE 20 MG/ML VIAL SLOW IVP PRN (09:35)
[2019-06-15] MEDS ORDERED: cloNIDine 0.1 MG TAB PO PRN (09:36)
[2019-06-15] MEDS ORDERED: Labetalol HCl 100 MG/20 ML VIAL ONE (09:43)
[2019-06-15] MEDS ORDERED: Nitroglycerin 2% Ointment 1 INCH/1 GM Packet ONE ×2 (09:43→11:05)
[2019-06-15 10:24] LABS: #Eosinphils 0.1 thou/uL (0.0-0.7); #Lymphocytes 2.3 thou/uL (1.20-3.40); #Monocytes 0.6 thou/uL (0.11-0.59); #Neutrophils 4.9 thou/uL (1.40-6.50); %Eosinophils 1.6 % (0.0-10.0); %Lymphocytes 29.3 % (21.0-51.0); %Monocytes 7.3 % (0.0-10.0); %Neutrophils 61.8 % (42.0-75.0); Hemoglobin 12.3 g/dL (12.0-16.0); Mean Corpuscular Hemoglobin 27.9 pg (27.0-31.0); Mean Corpuscular Volume 79.7 fL (78.0-98.0); Mean Platelet Volume 7.6 fL (7.4-10.4); Platelet Count 270 thou/uL (130-400); RBC Distribution Width 13.3 % (11.5-14.5); Red Blood Cell (RBC) Count 4.42 mill/uL (4.20-5.40); White Blood Cell (WBC) Count 7.9 thou/uL (4.8-10.8)
[2019-06-15 10:31] LABS: Albumin 3.6 g/dL (3.5-5.0); Calcium 8.3 mg/dL (7.8-10.44); Chloride 104 mmol/L (98-107); Globulin 3.1 g/dL (2.4-3.5); Glucose 91 mg/dL (70-105); Protein, Total 6.7 g/dL (6.0-8.3); Sodium 140 mmol/L (136-145)
[2019-06-15 10:32] LABS: Anion Gap 13 mmol/L (10-20); Bilirubin, Total 0.3 mg/dL (0.2-1.2); Carbon Dioxide 26 mmol/L (22-29)
[2019-06-15 10:33] LABS: Alkaline Phosphatase 107 U/L (40-110)
[2019-06-15 10:34] LABS: BUN (Urea Nitrogen) 6 mg/dL (7.0-18.7); Calc. Creatinine Clearance 0 mL/min (70-130); Estimated GFR-MDRD Greater than 90
[2019-06-15 10:35] LABS: AST (SGOT) 17 U/L (5-34); Potassium 2.9 mmol/L (3.5-5.1)
[2019-06-15 10:36] LABS: ALT (SGPT) 19 U/L (8-55)
[2019-06-15 10:42] LABS: Magnesium 2.6 mg/dL (1.6-2.6)
[2019-06-15 11:11] LABS: Bilirubin Negative (Negative); Blood, Urine Negative (Negative); Glucose, Urine (Dipstick) Negative (Negative); Leukocyte Negative (Negative); Nitrite Negative (Negative); Protein, Urine (Dipstick) Negative (Neg-Trace); Urobilinogen 0.2 mg/dL (Less than 2)
[2019-06-15] MEDS ORDERED: Potassium Chloride 20 MEQ TAB PO SCH (11:15)
[2019-06-15] MEDS ORDERED: Potassium Chloride 10 MEQ in Premix Bag 1 BAG IVPB SCH (11:15)
[2019-06-15 11:30] LABS: Clarity CLEAR (Clear)
[2019-06-15] MEDS ORDERED: Amlodipine 10 MG TAB PO SCH (12:00)
[2019-06-15 13:19] VITALS: BMI 28.1
[2019-06-15] MEDS ORDERED: Labetalol 100 MG TAB PO SCH ×2 (15:00→21:00)
--- NOTE | 2019-06-15 16:26 | HP ---
CHIEF COMPLAINT: Elevated blood pressure. HISTORY OF PRESENT ILLNESS: The patient is a 29-year-old female with no significant past medical history except , she had an elevated blood pressure and has been on blood pressure medications since. She was seen a few weeks ago for diarrhea and was found to have Cryptosporidium. The patient's diarrhea has resolved. During that time of the hospitalization, her blood pressures were well maintained and at this time when she was discharged home, she was only put on labetalol and has asked to follow up with her primary care if her blood pressure worsens or improves. However, the patient stated that her blood pressure worsened and she was asked to put back on all her remaining medications. The patient states that for the past few days and past week, her blood pressure has been kind of high. She has been keeping an eye on her blood pressure. She states that at times she does miss a few doses of her blood pressure medications. The patient also states that she has been eating fast food almost every day. She is not compliant with her low-salt diet. PAST MEDICAL HISTORY: hypertension. PAST SURGICAL HISTORY: x2. PSYCHIATRIC HISTORY: Anxiety. SOCIAL HISTORY: She denies any alcohol use or smoking history. No drug use. She is a full code and she lives with her 2 children. ALLERGIES: NO KNOWN DRUG ALLERGIES. CURRENT MEDICATION: The patient takes; 1. Valsartan, unknown mg. 2. Labetalol 200 mg t.i.d. 3. vitamin. 4. Iron. REVIEW OF SYSTEMS: All negative except for the ones mentioned above in the HPI. PHYSICAL EXAMINATION: VITAL SIGNS: As of the following; temperature of 98.8, respiratory rate 14, oxygen saturation 98% on room air, pulse 87, and 132/108. GENERAL: She is awake, alert, and oriented x3. Does not appear in any distress. HEENT: Normocephalic, atraumatic. Pupils are equal reactive to light. NECK: No lymphadenopathy noted. CARDIOVASCULAR: S1 and S2 present. No murmurs, rubs, or gallops. LUNGS: Clear to auscultation. No rhonchi or wheezes noted. ABDOMEN: Soft and nontender. Bowel sounds are present x2. EXTREMITIES: No edema. Pedal pulses are present x2. NEUROVASCULAR: There are no focal deficits noted. SKIN: No cuts, lesions, or bruises noted. LABORATORY RESULTS: Pending. ASSESSMENT AND PLAN: The patient is a very pleasant 29-year-old female, who presents to the hospital with hypertension. 1. Hypertension, uncontrolled. I do not have labs to state if it is an urgency, however, currently the patient is very asymptomatic. I will start her on her medications and maybe make some adjustments given her reproductive age. I am not sure if an BIMAL and ARB are good choice for her. I will start her on some Norvasc and also maybe keep her on the labetalol and add a diuretic. We will continue to monitor. I have educated her the importance of a low-salt diet. She has been eating fast food almost every day, maybe twice a meal, which most likely will be contributing to her uncontrolled hypertension. 2. Recent section. We will continue her vitamins and also iron. 3. Deep venous thrombosis prophylaxis. We will put the patient on some SCDs or subcu Lovenox. Job ID: [id number]
[2019-06-15] MEDS: Ferrous Sulfate 325 MG TAB PO SCH (20:19)
[2019-06-15] MEDS: Famotidine 20 MG TAB PO SCH (20:19)
[2019-06-16 06:20] LABS: #Eosinphils 0.2 thou/uL (0.0-0.7); #Lymphocytes 2.4 thou/uL (1.20-3.40); #Monocytes 0.7 thou/uL (0.11-0.59); #Neutrophils 4.6 thou/uL (1.40-6.50); %Basophils 0.5 % (0.0-1.0); %Eosinophils 1.9 % (0.0-10.0); %Lymphocytes 30.9 % (21.0-51.0); %Monocytes 8.6 % (0.0-10.0); %Neutrophils 58.1 % (42.0-75.0); Hemoglobin 12.8 g/dL (12.0-16.0); Mean Corpuscular HGB CONC 34.4 g/dL (32.0-36.0); Mean Corpuscular Volume 81.5 fL (78.0-98.0); Mean Platelet Volume 7.6 fL (7.4-10.4); Platelet Count 317 thou/uL (130-400); RBC Distribution Width 13.3 % (11.5-14.5); Red Blood Cell (RBC) Count 4.57 mill/uL (4.20-5.40); White Blood Cell (WBC) Count 7.9 thou/uL (4.8-10.8)
[2019-06-16 06:37] LABS: Anion Gap 11 mmol/L (10-20); BUN (Urea Nitrogen) 7 mg/dL (7.0-18.7); Calc. Creatinine Clearance 129 mL/min (70-130); Calcium 8.7 mg/dL (7.8-10.44); Carbon Dioxide 29 mmol/L (22-29); Chloride 104 mmol/L (98-107); Estimated GFR-MDRD Greater than 90; Glucose 86 mg/dL (70-105); Potassium 3.5 mmol/L (3.5-5.1); Sodium 140 mmol/L (136-145)
[2019-06-16 08:05] VITALS: BP 118/76; TEMP 98.8
[2019-06-16] MEDS ORDERED: Amlodipine 10 MG TAB PO SCH (09:00)
[2019-06-16] MEDS ORDERED: Hydrochlorothiazide 25 MG TAB PO SCH (09:00)
[2019-06-16] MEDS: Ferrous Sulfate 325 MG TAB PO SCH (09:15)
[2019-06-16] MEDS: Famotidine 20 MG TAB PO SCH (09:15)
--- NOTE | 2019-06-16 18:55 | DIS ---
DATE OF ADMISSION: 06/15/2019 DATE OF DISCHARGE: 06/16/2019 DISCHARGE DIAGNOSES: As of the followin. Hypertensive urgency. 2. Obesity. HOSPITAL COURSE: The patient is a 29-year-old female, who initially presented to the hospital with elevated blood pressure. The patient states that she has been taking her blood pressure medications. However, upon further questioning, she stated that she has skipped a few doses. She also has been very noncompliant with the diet and has been eating significant amount of fast food in fast food restaurants. The patient was educated in regard for salt intake and blood pressure control. She was monitored overnight. Her medications have been adjusted and she is currently nonlactating. She is aware not to breast-feed while she is on this current medications. HOME MEDICATIONS: Her home medications will be as of the followin. Norvasc 10 mg daily. 2. Hydrochlorothiazide 25 mg daily. 3. Metoprolol 100 mg daily. 4. Iron 325 twice a day. 5. vitamin. PHYSICAL EXAMINATION: VITAL SIGNS: Temperature 98.8, pulse 83, respirations 20, 96% on room air, and blood pressure 118/76. GENERAL: She is awake, alert, and oriented x3. Does not appear in any distress. CV: S1 and S2 present. No murmurs, rubs, or gallops. ABDOMEN: Soft and nontender. Bowel sounds are present x2. Again, she will be discharged home. She will follow up with primary and I have told her to control her salt intake and also be compliant with her blood pressure medications. I have advised her to take two medications in the morning and one in the evening, and she has agreed to do so, and she will follow up with primary care as an outpatient. Job ID: [id number]
--- NOTE | 2019-06-20 10:38 | EKG ---
Test Reason : Blood Pressure : / mmHG Vent. Rate : 087 BPM Atrial Rate : 087 BPM P-R Int : 130 ms QRS Dur : 082 ms QT Int : 404 ms P-R-T Axes : 047 007 014 degrees QTc Int : 486 ms Normal sinus rhythm Possible Left atrial enlargement Nonspecific T wave abnormality Prolonged QT T wave inversion III Abnormal ECG Confirmed by ANUM COLLADO, LINH ([id number]), order editor ABIMAEL RILEY ([id number]) on 06/20/2019 10:37:40 AM Referred By: ANUM Confirmed By:LINH ROWAN MD
== END 2019-06-16 12:43 | disposition home or self-care (01) ==
LOC: ERS 07:16 → ERHOLD 09:15 → 2SW 12:45
PROVIDERS: ADMIT Internal Medicine; ATTEND Internal Medicine
DX: I16.0 Hypertensive urgency (principal); I10 Essential (primary) hypertension; F41.9 Anxiety disorder, unspecified; E66.9 Obesity, unspecified; Z79.899 Other long term (current) drug therapy; Z68.28 Body mass index [BMI] 28.0-28.9, adult; Z91.11 Patient's noncompliance with dietary regimen
CPT/HCPCS: 36415; 80048; 80053; 81003; 83735; 85025; 93005; 96365; 96366; 96374; 96375; G0378; J0360; J3480

== ENCOUNTER 2019-09-19 06:54 | Emergency (ER) | payer OTHER | END 2019-09-19 08:25 | disposition home or self-care (01) | LOC: ERS 06:54 | DX: J10.1 Influenza due to other identified influenza virus with other respiratory manifestations (principal); F41.9 Anxiety disorder, unspecified | CPT/HCPCS: 87804; 99283 ==

== ENCOUNTER 2021-03-10 14:53 | Outpatient (CLI) | payer OTHER | END 2021-03-10 14:54 | disposition home or self-care (01) | LOC: BICULT 14:53 | PROVIDERS: ATTEND Family Medicine | DX: O09.892 Supervision of other high risk pregnancies, second trimester (principal); Z3A.20 20 weeks gestation of pregnancy | CPT/HCPCS: 76805 ==

== ENCOUNTER 2022-08-03 08:52 | Outpatient (CLI) | payer OTHER | END 2022-08-03 08:53 | disposition home or self-care (01) | LOC: BICMAMMO 08:52 | PROVIDERS: ATTEND Surgery | DX: N64.52 Nipple discharge (principal); N63.11 Unspecified lump in the right breast, upper outer quadrant; N64.9 Disorder of breast, unspecified | CPT/HCPCS: 77066; G0279 ==

== ENCOUNTER → 2022-08-06 | Day surgery (SDC) | payer OTHER | END | disposition home or self-care (01) | LOC: BICULT 12:22 | PROVIDERS: ATTEND Surgery | PROC: 0H9T3ZX Drainage of Right Breast, Percutaneous Approach, Diagnostic (ICD-10-PCS; principal; 2022-08-06) | PROC: 07953ZX Drainage of Right Axillary Lymphatic, Percutaneous Approach, Diagnostic (ICD-10-PCS; principal; 2022-08-06) | DX: C50.411 Malignant neoplasm of upper-outer quadrant of right female breast (principal); C77.3 Secondary and unspecified malignant neoplasm of axilla and upper limb lymph nodes; Z17.0 Estrogen receptor positive status [ER+] | CPT/HCPCS: 19083; 38505; 88305; 88341; 88342; 88360 ==

== ENCOUNTER 2022-09-03 09:06 | Day surgery (SDC) | payer OTHER ==
[2022-09-03] MEDS ORDERED: Sodium Bicarbonate 2.5 MEQ/5 ML VIAL ONE (09:37)
[2022-09-03] MEDS ORDERED: Lidocaine 1% PF 5 ML VIAL ONE (09:37)
[2022-09-03 12:35] VITALS: BP 165/106; TEMP 98.8
== END 2022-09-03 10:55 | disposition home or self-care (01) ==
LOC: ULT 09:06
PROVIDERS: ATTEND Radiology Radiation Oncology
PROC: 07D13ZX Extraction of Right Neck Lymphatic, Percutaneous Approach, Diagnostic (ICD-10-PCS; principal; 2022-09-03)
DX: R59.0 Localized enlarged lymph nodes (principal); C50.911 Malignant neoplasm of unspecified site of right female breast; Z17.0 Estrogen receptor positive status [ER+]
CPT/HCPCS: 38505; 88305; 88341; 88342

== ENCOUNTER 2022-09-07 08:45 | Outpatient (CLI) | payer OTHER | END 2022-09-07 08:46 | disposition home or self-care (01) | LOC: PET 08:45 | PROVIDERS: ATTEND Internal Medicine Hematology & Oncology | DX: C50.411 Malignant neoplasm of upper-outer quadrant of right female breast (principal); R59.0 Localized enlarged lymph nodes | CPT/HCPCS: 78815; A9552 ==

== ENCOUNTER 2023-01-28 10:13 | Outpatient (CLI) | payer OTHER ==
[~2023-01-28 10:13] MED LIST: Iopamidol 370 76% 100 ML VIAL ONE
== END 2023-01-28 10:14 | disposition home or self-care (01) ==
LOC: CT 10:13
PROVIDERS: ATTEND Internal Medicine Hematology & Oncology
DX: C50.411 Malignant neoplasm of upper-outer quadrant of right female breast (principal); R59.9 Enlarged lymph nodes, unspecified
CPT/HCPCS: 71260; Q9967

== ENCOUNTER 2024-10-16 17:52 | Emergency (ER) | payer OTHER, SELFPAY ==
[2024-10-16 18:54] LABS: #Basophils Less than 0.03 10x3/uL (0.0-0.2); %Basophils 0.1 % (0.0-1.0); %Eosinophils 0.4 % (0.0-10.0); %Lymphocytes 25.8 % (21.0-51.0); %Monocytes 13.3 % (0.0-10.0); %Neutrophils 60.2 % (42.0-75.0); Hematocrit 35.8 % (36.0-47.0); Hemoglobin 12.1 g/dL (12.0-16.0); Mean Corpuscular HGB CONC 33.8 g/dL (32.0-36.0); Mean Corpuscular Hemoglobin 28.5 pg (27.0-31.0); Mean Corpuscular Volume 84.2 fL (78.0-98.0); Mean Platelet Volume 9.5 fL (7.4-10.4); Platelet Count 220 10x3/uL (130-400); RBC Distribution Width 13.2 % (11.5-14.5); Red Blood Cell (RBC) Count 4.25 mill/uL (4.20-5.40)
[2024-10-16 19:13] LABS: ALT (SGPT) 8 U/L (Less than 34); AST (SGOT) 16 U/L (11-34); Albumin 3.5 g/dL (3.1-4.5); Anion Gap 13 mmol/L (10-20); BUN (Urea Nitrogen) 10 mg/dL (7.0-18.7); Bilirubin, Total 0.5 mg/dL (0.3-1.2); Calc. Creatinine Clearance 0 mL/min (70-130); Calcium 9.5 mg/dL (7.8-10.44); Carbon Dioxide 26 mmol/L (22-29); Chloride 106 mmol/L (98-107); Estimated GFR 81; Globulin 3.8 g/dL (2.4-3.5); Glucose 76 mg/dL (70-105); Potassium 4.1 mmol/L (3.5-5.1); Protein, Total 7.3 g/dL (6.0-8.3); Sodium 141 mmol/L (136-145)
[2024-10-16 19:15] LABS: Troponin I 0.014 ng/mL (< 0.028)
[2024-10-16 20:08] LABS: Alkaline Phosphatase 86 U/L (40-110)
[2024-10-16] MEDS ORDERED: Morphine 4 MG/ML VIAL ONE (20:57)
[2024-10-16] MEDS ORDERED: Ondansetron PF 4 MG/2 ML Vial ONE (20:57)
[2024-10-16] MEDS ORDERED: Ketorolac Tromethamine 30 MG (1 mL) VIAL ONE (22:20)
== END 2024-10-16 22:33 | disposition home or self-care (01) ==
LOC: ERS 17:52
DX: M43.6 Torticollis (principal)
CPT/HCPCS: 36415; 71045; 72125; 80053; 84484; 85025; 93005; 96374; 96375; J1885; J2270; J2405

== ENCOUNTER 2025-03-17 13:35 | Inpatient (IN) | payer OTHER ==
[~2025-03-17 13:35] MED LIST changes: -Iopamidol 370 76% 100 ML VIAL ONE; +Iopamidol-370 76% 500 ML MDV (1 ML CHARGE) ONE
[2025-03-17 14:50] LABS: CAUTI Indications for Culture Pelvic or flank pain; Glucose, Urine (Dipstick) Normal (Negative); Leukocyte Negative Leu/uL (Negative); Protein, Urine (Dipstick) Negative (Neg-Trace); Specific Gravity, Urine 1.011 (1.002-1.036)
[2025-03-17 14:53] LABS: Bacteria/HPF 1+ HPF (None Seen)
[2025-03-17 14:54] LABS: Urine Culture Reflex No No
[2025-03-17 15:00] LABS: #Basophils Less than 0.03 10x3/uL (0.0-0.2); #Eosinophils Less than 0.03 10x3/uL (0.0-0.7); #Monocytes 2.20 10x3/uL (0.11-0.59); #Neutrophils 17.77 10x3/uL (1.40-6.50); %Basophils 0.1 % (0.0-1.0); %Eosinophils 0.1 % (0.0-10.0); %Lymphocytes 9.2 % (21.0-51.0); %Monocytes 9.9 % (0.0-10.0); %Neutrophils 80.1 % (42.0-75.0); Hematocrit 26.1 % (36.0-47.0); Hemoglobin 9.1 g/dL (12.0-16.0); Mean Corpuscular Hemoglobin 26.9 pg (27.0-31.0); Mean Corpuscular Volume 77.2 fL (78.0-98.0); Platelet Count 414 10x3/uL (130-400); Red Blood Cell (RBC) Count 3.38 mill/uL (4.20-5.40); White Blood Cell (WBC) Count 22.17 10x3/uL (4.8-10.8)
[2025-03-17 15:17] LABS: Lipase 7 U/L (8-78)
[2025-03-17 15:19] LABS: ALT (SGPT) Less than 7 U/L (Less than 34); AST (SGOT) 24 U/L (11-34); Albumin 2.9 g/dL (3.1-4.5); Alkaline Phosphatase 99 U/L (40-110); Anion Gap 15 mmol/L (10-20); BUN (Urea Nitrogen) 9 mg/dL (7.0-18.7); Bilirubin, Total 0.6 mg/dL (0.3-1.2); Calc. Creatinine Clearance 0 mL/min (70-130); Calcium 8.9 mg/dL (7.8-10.44); Carbon Dioxide 24 mmol/L (22-29); Chloride 100 mmol/L (98-107); Globulin 4.3 g/dL (2.4-3.5); Glucose 88 mg/dL (70-105); Potassium 3.5 mmol/L (3.5-5.1); Sodium 135 mmol/L (136-145)
[2025-03-17 15:20] LABS: Acetaminophen Less than 10 mcg/mL (Less than 10); Salicylate Less than 8.0 mg/dL (Less than 8.0)
[2025-03-17 15:22] LABS: Troponin I Less than 0.010 ng/mL (< 0.028)
[2025-03-17 15:57] LABS: Cocaine Metabolite Screen Negative (Negative); Pregnancy Test - Urine (BHCG) Negative (Negative); Pregu Control Background? CLEAR/WHITE (CLR/WHITE); Pregu Control Bar Appear? YES (CONTROL BAR); THC/Cannabinoid Screen Negative (Negative); Tricyclic Screen Negative (Negative)
[2025-03-17] MEDS ORDERED: Cefepime 2 GM VIAL ONE (17:33)
[2025-03-17] MEDS ORDERED: Ondansetron PF 4 MG/2 ML Vial IVP PRN (18:19)
[2025-03-17] MEDS: VANCOMYCIN 1.75 GM/350 ML Premix BAG IVPB SCH (20:19)
[2025-03-17 20:36] VITALS: BMI 23.5
[2025-03-17] MEDS: Enoxaparin 40 MG (0.4 mL) SYRINGE SC SCH (20:44)
[2025-03-17] MEDS: Methocarbamol 500 MG TAB PO SCH (20:44)
[2025-03-17] MEDS: Senokot S 8.6-50 MG TAB PO SCH (20:44)
[2025-03-17] MEDS: HYDROcodone/Acetaminophen 5/325 mg Tablet PO PRN (22:18)
[2025-03-18 04:56] LABS: #Basophils Less than 0.03 10x3/uL (0.0-0.2); #Eosinophils 0.04 10x3/uL (0.0-0.7); #Monocytes 1.79 10x3/uL (0.11-0.59); #Neutrophils 12.43 10x3/uL (1.40-6.50); %Basophils 0.1 % (0.0-1.0); %Eosinophils 0.2 % (0.0-10.0); %Lymphocytes 11.7 % (21.0-51.0); %Monocytes 11.0 % (0.0-10.0); %Neutrophils 76.5 % (42.0-75.0); Hematocrit 30.4 % (36.0-47.0); Hemoglobin 10.1 g/dL (12.0-16.0); Mean Corpuscular Hemoglobin 26.5 pg (27.0-31.0); Mean Corpuscular Volume 79.8 fL (78.0-98.0); Platelet Count 306 10x3/uL (130-400); Red Blood Cell (RBC) Count 3.81 mill/uL (4.20-5.40); White Blood Cell (WBC) Count 16.26 10x3/uL (4.8-10.8)
[2025-03-18 05:15] LABS: Anion Gap 13 mmol/L (10-20); BUN (Urea Nitrogen) 8 mg/dL (7.0-18.7); Calc. Creatinine Clearance 117 mL/min (70-130); Calcium 8.4 mg/dL (7.8-10.44); Carbon Dioxide 21 mmol/L (22-29); Chloride 102 mmol/L (98-107); Glucose 76 mg/dL (70-105); Potassium 3.5 mmol/L (3.5-5.1); Sodium 132 mmol/L (136-145)
[2025-03-18] MEDS: Transdermal Patch Removal TOP SCH (08:50)
[2025-03-18] MEDS: Enoxaparin 40 MG (0.4 mL) SYRINGE SC SCH (08:50)
[2025-03-18] MEDS: Senokot S 8.6-50 MG TAB PO SCH (20:10)
[2025-03-19 04:58] LABS: #Basophils Less than 0.03 10x3/uL (0.0-0.2); #Eosinophils 0.05 10x3/uL (0.0-0.7); #Monocytes 1.17 10x3/uL (0.11-0.59); #Neutrophils 8.65 10x3/uL (1.40-6.50); %Basophils 0.1 % (0.0-1.0); %Eosinophils 0.4 % (0.0-10.0); %Lymphocytes 14.8 % (21.0-51.0); %Monocytes 10.0 % (0.0-10.0); %Neutrophils 74.1 % (42.0-75.0); Hematocrit 29.2 % (36.0-47.0); Hemoglobin 9.9 g/dL (12.0-16.0); Mean Corpuscular Hemoglobin 26.3 pg (27.0-31.0); Mean Corpuscular Volume 77.7 fL (78.0-98.0); Platelet Count 302 10x3/uL (130-400); Red Blood Cell (RBC) Count 3.76 mill/uL (4.20-5.40); White Blood Cell (WBC) Count 11.68 10x3/uL (4.8-10.8)
[2025-03-19 05:01] LABS: Anion Gap 11 mmol/L (10-20); BUN (Urea Nitrogen) 10 mg/dL (7.0-18.7); Calc. Creatinine Clearance 114 mL/min (70-130); Calcium 8.6 mg/dL (7.8-10.44); Carbon Dioxide 25 mmol/L (22-29); Chloride 99 mmol/L (98-107); Glucose 132 mg/dL (70-105); Potassium 2.9 mmol/L (3.5-5.1); Sodium 132 mmol/L (136-145)
[2025-03-19] MEDS ORDERED: Electrolyte Replacement Protocol 1 EACH FS SCH (08:00)
[2025-03-19] MEDS ORDERED: Pharmacy to Dose- VANCOMYCIN IVPB PRN (10:07)
[2025-03-19] MEDS: Vancomycin 1 GM in Premix 1 BAG IVPB SCH (10:16)
[2025-03-19] MEDS: Vancomycin 1.25 GM / NS 250 ML VIAL-2-BAG IVPB SCH (10:54)
[2025-03-19 14:22] LABS: Potassium 3.5 mmol/L (3.5-5.1)
[2025-03-19 15:51] VITALS: BP 115/76; TEMP 98.2
== END 2025-03-19 16:01 | disposition home or self-care (01) | DRG 948 ==
LOC: ERS 13:35 → SUATTDRO 13:35 → T4-B 18:19
PROVIDERS: ADMIT Internal Medicine; ATTEND Family Medicine
DX: G89.3 Neoplasm related pain (acute) (chronic) (principal); C79.51 Secondary malignant neoplasm of bone; F41.9 Anxiety disorder, unspecified; C50.911 Malignant neoplasm of unspecified site of right female breast; E87.6 Hypokalemia; M54.9 Dorsalgia, unspecified; D27.0 Benign neoplasm of right ovary; D72.829 Elevated white blood cell count, unspecified; Z92.21 Personal history of antineoplastic chemotherapy; Z92.25 Personal history of immunosuppression therapy; M54.41 Lumbago with sciatica, right side
CPT/HCPCS: 36415; 71045; 71275; 74177; 80048; 80053; 80306; 80307; 81001; 81025; 82550; 83605; 83690; 84145; 84443; 84484; 85025; 85379; 87040; 87428; 93005; 96365; 96372; 96375; 99283; J0692; J1100; J1650; J1885; J2060; J2272; J3373; J3375; J7050; Q9967